=== PATIENT | female | born 1960 | race African-American/Black ===

== ENCOUNTER 2018-02-12 15:00 | Observation (INO) | payer OTHER, SELFPAY ==
[2018-02-12] VITALS (11 sets, daily range): BP systolic 125–153; BP diastolic 70–85; PULSE 74–91; RESP 14–16; TEMP 36.6; O2SAT 98–100; BMI 36.6; BMI 36.7; BMI 34.4
--- NOTE | 2018-02-12 15:17 | CT_ITS ---
STUDY: CT BRAIN WITHOUT CONTRAST REASON FOR EXAM: Female, 57 years old. Weakness. Numbness to the right arm and face RADIATION DOSAGE (If Supplied By Facility): CTDIvol = ( 44.99 ) mGy, DLP = ( 745.49 ) mGycm TECHNIQUE: Transaxial CT imaging of the brain was performed without administration of intravenous contrast material. Individualized dose optimization techniques were used for this CT. COMPARISON: None. FINDINGS: Normal soft tissue structures. Normal calvarium. Normal size ventricles and extra-axial spaces for the patient's age. Normal white matter tracts of the cerebral hemispheres. Normal basal ganglia and thalami. Normal brainstem. Normal cerebellum. There is no intracranial hemorrhage. There are no findings of an acute ischemic infarction. Normal visualized paranasal sinuses. CT/Brain/Head without Contrast IMPRESSION: Normal unenhanced CT scan of the brain. Electronically Signed: Linus Leone DO at 17:25 EDT Tel , Service support ,
--- NOTE | 2018-02-12 15:17 | EKG12_ITS ---
Test Reason : Blood Pressure : / mmHG Vent. Rate : 082 BPM Atrial Rate : 082 BPM P-R Int : 198 ms QRS Dur : 082 ms QT Int : 398 ms P-R-T Axes : 053 043 032 degrees QTc Int : 464 ms Normal sinus rhythm Normal ECG Confirmed by DENNIS ALVARENGA MD ([id number]), script editor PETER SILVERMAN ([id number]) on 02/17/2018 2:17:28 PM Referred By: Confirmed By:DENNIS ALVARENGA MD
--- NOTE | 2018-02-12 15:21 | ED.DCSUM_ITS ---
- ER Visit Summary Date of Service: 02/12/18 Chief Complaint: Trouble speaking and left facial numbness. History of Present Illness: The patient is a 57 F states approximately 2 hours ago she began having trouble speaking. She states she knew what she wanted to say but could not get the words out. She developed numbness on her left face and arm. She states she dropped something with her left arm as well. Family states she had a left-sided facial droop. She states she felt unsteady but did not fall. Denies headache. Denies vision changes. Denies chest pain or shortness of breath. She states her symptoms are starting to resolve and she now only has left facial numbness. Physical Examination: Vitals are stable. Patient is afebrile. Alert no acute distress. HEENT exam is unremarkable. Neck is supple. Lungs are clear and equal bilaterally. Heart is regular rate and rhythm. Abdomen is soft nontender nondistended. Extremities are unremarkable. Skin is warm and dry. NIH 1 for decreased sensation left face. Remainder of exam is unremarkable. Emergency Department Course and Treatment: EKG is sinus rhythm rate of 82, no acute ischemic changes. CBC, chemistries are unremarkable. Troponin is negative. Chest x-ray shows no acute process. CT head shows no acute process. On repeat evaluation patient's symptoms have resolved. Will discuss with the hospitalist for observation. Disposition: Observation Impression: TIA This note was generated with [employer] dictation software. It may contain incorrect words, spelling, and punctuation that were not noted in review of the chart prior to signing ED Disposition - Plan for ED Patient: Chief Complaint: Confusion Referrals: Roberto Alford MD [Primary Care Provider] -
--- NOTE | 2018-02-12 15:30 | RAD_ITS ---
STUDY: X-RAY CHEST REASON FOR EXAM: Female, 57 years old. Confusion, numbness and tingling TECHNIQUE: Single AP portable view of the chest. COMPARISON: None. FINDINGS: The lungs are clear and expanded. There is no demonstrated pleural abnormality. Normal size heart. Normal mediastinum and kamla. Normal visualized pulmonary arteries. Normal visualized aortic arch and descending thoracic aorta. Normal visualized thoracic spine. Normal visualized ribs, clavicles, and shoulders. There is no demonstrated abnormality of the visualized soft tissue structures of the upper abdomen. RAD/Chest 1 View IMPRESSION: Normal x-ray examination of the chest. Electronically Signed: Linus Leone DO at 16:13 EDT Tel , Service support ,
[2018-02-12 15:43] LABS: Absolute Lymphocyte Count 3.91 X10^3/ul (0.83-4.51); Absolute Neutrophil Count 5.1 X10^3/uL (2.0-7.7); Basophil# 0.04 X10^3/uL; Basophil% 0.4 % (0-1); Eosinophil# 0.14 X10^3/uL; Eosinophils% 1.4 % (0-5); Hematocrit 38.2 % (37-47); Lymphocyte # 3.91 X10^3/ul (4.0); Lymphocyte % 40.1 % (19-41); Mean Corp Hgb Conc 31.4 g/gl (32-36); Mean Corpuscular Hgb 26.7 pg (27.0-32.0); Mean Corpuscular Volume 84.9 fL (81-99); Mean Platelet Vol. 10.1 fl (6.2-12.0); Monocyte# 0.55 X10^3/uL; Monocyte% 5.6 % (0-10); Neutrophil # 5.08 X10^3/uL (2.7-7.7); Neutrophil % 52.3 % (47-70); Platelet Count 282 K/mm3 (150-450); RBC Distribution Width CV 15.7 % (11.6-14.6); RBC Distribution Width SD 48.9 fl (35.1-43.9); White Blood Count 9.7 K/mm3 (4.4-11.0)
[2018-02-12 15:45] LABS: POSITIVE COUNT NO; POSITIVE DIFFERENTIAL NO; POSITIVE MORPHOLOGY NO
[2018-02-12 15:59] LABS: Anion Gap 4 (5-15); BUN 16 mg/dL (7-18); BUN/Creat Ratio 20.4 RATIO (10-20); Calcium,Total 8.6 mg/dL (8.5-10.1); Chloride 108 mmol/L (98-107); Creatinine, Serum 0.78 mg/dL (0.55-1.02); EST Glomerular Filtration Rate 81 mL/min (>60); Est Glom Filt Rate - Afr Amer 97 mL/min (>60); Estimated Creatinine Clearance 83.16 ml/min; Glucose 91 mg/dL (74-106); Potassium 3.8 mmol/L (3.5-5.1); Sodium Level 141 mmol/L (136-145)
[2018-02-12 16:29] LABS: Prothrombin Time (Protime)PT. 13.6 SECONDS (11.7-14.9)
[2018-02-12 16:30] LABS: Partial Thromboplast Time 29.2 Seconds (24.1-36.2)
[2018-02-12] MEDS: Aspirin 81 MG TAB.CHEW 324 MG PO (19:28)
[2018-02-12] MEDS: 0.9% Normal Saline 1,000 ML 999 ML IV (19:30)
--- NOTE | 2018-02-12 19:38 | HP.PCM_ITS ---
Problem List (1) Dehydration Status: Acute (2) Obesity Status: Chronic Qualifiers: Obesity classification: adult class 2 (BMI 35 - 39.9) (3) TIA (transient ischemic attack) Status: Acute (4) IBS (irritable bowel syndrome) Status: Chronic Qualifiers: Irritable bowel syndrome type: with constipation Qualified Code(s): K58.1 - Irritable bowel syndrome with constipation History of Present Illness Date of Admission: 02/12/18 Chief Complaint: Numbness and weakness right arm and numbness of left face with slurred speech The patient is a 57 year old F with a past medical history of irritable bowel syndrome on no medications other than Linzess who presented to the emergency room at [facility] on 02/12/2018 complaining of sudden onset of right arm weakness and numbness and left face numbness with slurred speech while at work. The symptoms lasted approximately 1 hour. She denies any right arm numbness or weakness at this time and the left face is no longer numb. Speech is normal. She had a similar episode 3-4 months ago with the same symptoms. She does not take a baby aspirin daily. She denies any history of hypertension, hyperlipidemia or CAD. She has been told in the past that she is borderline diabetic but , she is on no medications. She is a life long non- smoker. Vital signs at presentation to the emergency room were temperature 97.8 , pulse rate 90, blood pressure 146/72, respiratory rate 14 and she was 100% saturated on room air. CT brain was normal. CBC was unremarkable. PT and PTT were within normal limits. Electrolytes were unremarkable. BUN was 16 with a creatinine of 0.78 and the BUN/creatinine ratio of 20.4. 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 Told him was less than 0.02 and the EKG showed normal sinus rhythm with no ectopy and no spacious ST or T-wave changes. She is being admitted to a monitored bed on PCU and the TIA/stroke protocol has been initiated. She was given 324 mg ASA in the ER and will be getting a 1 Lit bolus of NS in preparation for CTA of the head and the neck. Past Medical History Past Medical History (Chronic Problems): Chronic Problems Obesity (Chronic) IBS (irritable bowel syndrome) (Chronic) Allergies latex Allergy (Verified 05/02/14 22:55) Hives Home Medications: Ambulatory Orders Medication Instructions Recorded NK [NK] 02/12/18 Surgical History: hysterectomy - for DUB...she still has ovaries, - - minor surgery on her foot Psychiatric History: No pertinent psych hx H[employer] History: - - DUB...S/P hyster Lives: Spouse/ Significant Other Smoking Status: Never smoker Tobacco Use: Non-smoker Alcohol: None Drugs: None - *Family History Maternal History Items: Diabetes, - - her mother is alive at 80 YOA and has DM and had a stroke Paternal History Items: Diabetes, Heart Disease, - - Father is alive at 85 years of age and has diabetes and congestive heart failure Sibling History Items: - - She has 10 siblings. One sister of breast cancer and one sister has hypertension. Review of Systems Constitutional: Denies: Chills, Fever, Weight Change Eyes: Denies: Blurred vision, Redness HEENT: Denies: Head Aches, Sinus Congestion, Sinus Drainage Cardiovascular: Reports: Edema - when she stands all day at work. Denies: Chest Pain, Heaviness, Light Headedness, Palpitations Respiratory: Denies: Cough, Shortness of breath at rest, Sputum production Gastrointestinal: Denies: Abdominal Pain, Nausea, Vomiting Genitourinary: Denies: Dysuria Gynecological: Reports: - - she is overdue for her yearly MMG and was reminded that she is at increased risk for breast CA she has a first degree relative who had breast CA. Denies: Breast symptoms, Vaginal discharge Musculoskeletal: Denies: Joint Pain, Joint Tenderness Skin: Denies: Jaundice, Rash, Wounds Neurological: Reports: Slurred speech, Focal weakness, Numbness. Denies: Balance problems, Confusion, Tremor, Seizures Psychiatric: Denies: Anxiety, Depression, Homicidal Ideations, Suicidal Ideations Endocrine: Denies: Change in Body Habitus Hematologic/ Lymphatic: Denies: Hx of blood clot VTE Information - Inpt Only VTE Present on Admission: No VTE Mechan Device Prophylaxis: None VTE Pharm Prophylaxis ordered?: No Reason prophylaxis not ordered:: Treatment Not Indicated - short admission expected Patient Problems: Active and Suspected Problems Dehydration (Acute) TIA (transient ischemic attack) (Acute) - Physical Exam General: Alert, Oriented x3, Cooperative, No apparent distress, Well developed, Well nourished HEENT: Atraumatic, PERRLA, EOMI, Normocephalic Oral: No Gingival or Mucosal Lesions/ Ulcerations, Dry Mucosa Neck: Supple, No JVD, Negative Carotid Bruits, Negative Hepatojugular Reflux, No Nodes, Trachea Midline Lungs: Clear to auscultation, Normal air movement, No rhonchi, No wheeze, No rales Cardiovascular: Regular rate, Regular Rhythm, Normal S1, Normal S2, No murmurs, No rub noted, No Gallop Abdomen: Bowel Sounds Present, Soft, Non Tender, Non-Distended, Obese Extremities: No clubbing, No cyanosis, No edema, No Calf Tenderness, Peripheral Pulses Normal Skin: No rashes, No breakdown Musculoskeletal: No Muscle Wasting Neurological: Cranial nerves II-XII grossly intact, Neuro grossly intact, - - R hand dominant Psych/Mental Status: Normal Affect, Appropriate Vital Signs Temp Pulse Resp BP Pulse Ox 97.8 F 75 14 131/70 H 99 02/12/18 15:04 02/12/18 19:12 02/12/18 19:12 02/12/18 19:12 02/12/18 19:12 Oxygen Delivery Method Room Air Weight: 248 lb 3.848 oz Body Mass Index (BMI) 36.6 Laboratory Tests Past 24 Hrs 02/12/18 02/12/18 02/12/18 15:15 15:15 15:15 WBC 9.7 RBC 4.50 Hgb 12.0 Hct 38.2 MCV 84.9 MCH 26.7 L MCHC 31.4 L RDW 15.7 H RDW Differential 48.9 H Plt Count 282 MPV 10.1 Immature Gran % (Auto) 0.200 Neut % (Auto) 52.3 Lymph % (Auto) 40.1 Fillmore % (Auto) 5.6 Eos % (Auto) 1.4 Baso % (Auto) 0.4 Absolute Neuts (auto) 5.1 Absolute Lymphs (auto) 3.91 Total Counted Not Reportable PT Cancelled INR Cancelled APTT Cancelled Sodium 141 Potassium 3.8 Chloride 108 H Carbon Dioxide 29.0 Anion Gap 4 L BUN 16 Creatinine 0.78 Estim Creat Clear Calc 83.16 Est GFR (MDRD) Af Amer 97 Est GFR (MDRD) Non-Af 81 BUN/Creatinine Ratio 20.4 H Glucose 91 Calcium 8.6 Troponin I < 0.02 02/12/18 16:00 WBC RBC Hgb Hct MCV MCH MCHC RDW RDW Differential Plt Count MPV Immature Gran % (Auto) Neut % (Auto) Lymph % (Auto) Fill[place] % (Auto) Eos % (Auto) Baso % (Auto) Absolute Neuts (auto) Absolute Lymphs (auto) Total Counted PT 13.6 INR 1.0 APTT 29.2 Sodium Potassium Chloride Carbon Dioxide Anion Gap BUN Creatinine Estim Creat Clear Calc Est GFR (MDRD) Af Amer Est GFR (MDRD) Non-Af BUN/Creatinine Ratio Glucose Calcium Troponin I Assessment/Plan Active and Suspected Problems Dehydration (Acute) TIA (transient ischemic attack) (Acute) Impressions 1. TIA 2. IBS - on Linzess 3. obesity 4. glucose intolerance - not on meds 5. FH of breast CA in her sister Admitted to PCU to a monitored bed Bolus with 1 lit NS and get a CTA of the head and neck 0.45% NS at 75 after the bolus Continue ASA 81 mg daily ECHO Lipid panel in the AM Check a HGBA1C Recheck BMP in the AM No DVT prophylaxis needed...she is ambulatory and short admission is expected
--- NOTE | 2018-02-12 20:12 | ECHOD_ITS ---
Reason For Study: TIA/CVA Procedure This was a 2D Doppler, Color Flow transthoracic echocardiogram. The exam was of adequate technical quality. Exam performed portable in patient room. Left Ventricle Normal LV size. Apical false tendon noted. Left ventricular systolic function is normal. The estimated ejection fraction is 60 %. No evidence for diastolic dysfunction. No regional wall motion abnormalities noted. Right Ventricle Normal RV size. Normal systolic function. Atria Normal left atrium. Normal right atrium. No doppler evidence for ASD. Bubble contrast study negative for right to left interatrial shunt. Mitral Valve There is no mitral annular calcification. Normal mitral valve. Trivial mitral valve insufficiency. Tricuspid Valve Normal tricuspid valve. Trivial tricuspid valve insufficiency. Right ventricular systolic pressure estimated to be 20 mmHg. Aortic Valve Trisinus/trileaflet aortic valve. Normal aortic valve. Pulmonic Valve The pulmonic valve is not well visualized. Trivial pulmonic valve insufficiency. Great Vessels Normal sized aortic root. Pericardium/Pleural No pericardial effusion. Medication Performed a rapid injection of agitated mix of 9 cc saline and 1cc air to assess for atrial septal defect. MMode/2D Measurements & Calculations LVIDd: 3.5 cm IVSd: 1.3 cm Ao root diam: 3.4 cm LVIDs: 2.2 cm LVPWd: 1.2 cm LA dimension: 3.7 cm RVDd: 3.5 cm FS: 38.2 % LAV(MOD-bp): 60.2 ml EDV(MOD-sp4): 94.9 ml EDV(MOD-sp2): 99.3 ml LAV(MOD-bp) Indexed: 27.1 ml/m2 ESV(MOD-sp4): 32.2 ml EF(MOD-sp2): 56.5 % LAV(MOD-sp2): 56.6 ml EF(MOD-sp4): 66.1 % LAV(MOD-sp4): 52.4 ml SV(MOD-sp4): 62.7 ml SV(MOD-sp2): 56.1 ml LA A4 area: 16.9 cm2 RA A4 area: 11.5 cm2 Doppler Measurements & Calculations MV E max melissa: 73.8 cm/sec Ao V2 max: 100.4 cm/sec LV V1 max: 90.5 cm/sec MV A max melissa: 84.1 cm/sec Ao max P.0 mmHg LV V1 max P.3 mmHg MV E/A: 0.88 PA V2 max: 87.4 cm/sec TR max melissa: 206.6 cm/sec TR max P.1 mmHg Interpretation Summary Left ventricular systolic function is normal. The estimated ejection fraction is 60 %. Apical false tendon noted. Trivial mitral valve insufficiency. Trivial tricuspid valve insufficiency. Trivial pulmonic valve insufficiency. Right ventricular systolic pressure estimated to be 20 mmHg. No evidence for diastolic dysfunction. Ordering Physician: Zahida Sam Referring Physician: Suman Alford M.D. Performed By: Meenu Negron RDCS
--- NOTE | 2018-02-12 20:12 | CT_ITS ---
STUDY: CTA OF THE BRAIN REASON FOR EXAM: Female, 57 years old. TIA/stroke with right arm numbness and weakness. RADIATION DOSAGE (If Supplied By Facility): CTDIvol = ( 18.71 ) mGy, DLP = ( 786.98 ) mGycm TECHNIQUE: CT angiography was performed with a multi-detector CT scanner. Data acquisition was obtained from the skull base through the vertex following intravenous administration of approximately 100 ml of IV contrast. MIP images were reconstructed from the axial data set. Post-processing of the angiographic images was performed, with multiplanar reformation and 3D reconstruction. Individualized dose optimization techniques were used for this CT. COMPARISON: None. FINDINGS: Normal bilateral petrous carotid arteries. Normal right cavernous carotid artery with a normal supraclinoid bifurcation. Normal left cavernous carotid artery with a normal supraclinoid bifurcation. Normal right A1 segments of the anterior cerebral artery. Normal left A1 segments of the anterior cerebral artery. Normal intact anterior communicating artery (ACOM). Normal bilateral A2 segments of the anterior cerebral arteries. Normal right M1 and M2 segments of the middle cerebral arteries, with a normal M1 bifurcation. Normal left M1 and M2 segments of the middle cerebral arteries, with a normal M1 bifurcation. Normal right posterior communicating artery (PCOM). Normal left posterior communicating artery (PCOM). Normal bilateral vertebral arteries. Normal basilar artery with a normal basilar bifurcation. The visualized bilateral superior cerebellar (SCA) arteries are normal. Normal bilateral P1, P2 and visualized P3 segments of the posterior cerebral arteries. There is no demonstrated aneurysm of the [place] of [place]. There is no demonstrated abnormality of the visualized brain. CT/CTA Head W/WO Contrast IMPRESSION: 1. No evidence of significant steno-occlusive disease or aneurysm. Electronically Signed: Gary Baker DO at 21:34 EDT , Service support ,
--- NOTE | 2018-02-12 20:12 | CT_ITS ---
STUDY: CTA NECK WITH CONTRAST REASON FOR EXAM: Female, 57 years old. TIA, stroke with right arm numbness and weakness. RADIATION DOSAGE (If Supplied By Facility): CTDIvol = ( 18.71 ) mGy, DLP = ( 786.98 ) mGycm TECHNIQUE: CT angiography with multi-detector data acquisition was performed from the aortic arch to the skull base following intravenous administration of 100ML ml of Isovue 370 contrast. MIP images were reconstructed from the axial data set. Post-processing of the angiographic images was performed, with multiplanar reformation and 3D reconstruction. Individualized dose optimization techniques were used for this CT. COMPARISON: None. FINDINGS: AORTIC ARCH: Normal visualized aortic arch. Normal origins of the brachiocephalic, left common carotid, and left subclavian arteries. RIGHT CAROTID ARTERIES: Normal right common carotid artery (CCA). Normal right common carotid bulb. Normal origin of the right internal carotid (ICA) artery without a hemodynamically significant stenosis. Normal visualized cervical portion of the right internal carotid artery. Normal origin of the right external carotid artery (ECA). LEFT CAROTID ARTERIES: Normal left common carotid artery (CCA). Normal left common carotid bulb. Normal origin of the left internal carotid (ICA) artery without a hemodynamically significant stenosis. Normal visualized cervical portion of the left internal carotid artery. Normal origin of the left external carotid artery (ECA). VERTEBRAL ARTERIES: Normal bilateral vertebral arteries. CT/CTA Neck W/WO Contrast IMPRESSION: No evidence of significant steno-occlusive disease or aneurysm. Electronically Signed: Gary Baker DO at 21:35 EDT , Service support ,
[2018-02-12 21:02] LABS: Hemoglobin A1c 6.1 % (4.2-6.3)
[2018-02-12 21:10] LABS: AST(SGOT) 14 U/L (15-37); Alanine Aminotransfer ALT/SGPT 14 U/L (13-56); Albumin, Serum 3.4 g/dL (3.2-5.0); Alkaline Phosphatase 130 U/L (45-117); Bilirubin, Direct 0.08 mg/dL (0.00-0.30); Globulin 4.1 g/dL (2.2-4.2); Magnesium 2.3 mg/dL (1.6-2.6); Phosphorus 2.9 mg/dL (2.5-4.9); Protein, Total 7.5 g/dL (6.4-8.2); Thyroid Stim Hormone (TSH) 1.06 uIU/mL (0.358-3.74)
[2018-02-12] MEDS: 0.45% Normal Saline 1,000 ML 100 ML IV (21:12)
[2018-02-13] VITALS (11 sets, daily range): BP systolic 121–153; BP diastolic 61–81; PULSE 64–89; RESP 16–18; TEMP 36.4–36.8; O2SAT 98–100; BMI 34.4
[2018-02-13 00:34] LABS: Magnesium 2.3 mg/dL (1.6-2.6); Thyroid Stim Hormone (TSH) 1.08 uIU/mL (0.358-3.74)
[2018-02-13] MEDS: 0.45% Normal Saline 1,000 ML 100 ML IV (05:18)
[2018-02-13] MEDS: Enoxaparin 40 MG/0.4 ML Syringe SC (05:18)
[2018-02-13 05:48] LABS: Cholesterol 195 mg/dL (200); High Density Lipoprotein 46 mg/dL; Triglycerides 75 mg/dL; Very Low Density Lipoprotein 15 mg/dL (5-40)
--- NOTE | 2018-02-13 05:55 | MRI_ITS ---
STUDY: MRI BRAIN WITHOUT CONTRAST REASON FOR EXAM: Female, 57 years old. Episode of facial/lip numbness, bilat arm numbness. Symptoms resolved now. TECHNIQUE: Standardized multiplanar fat and water weighted pulse sequences were obtained. COMPARISON: CT February 12, 2018 FINDINGS: There is a single punctate focus of hyperintensity on the DWI sequence in the left parietal lobe which could represent an acute lacunar infarct. Normal size of the ventricles and extra-axial spaces for the patient's age. Normal white matter tracts of the supratentorial brain. Normal bilateral basal ganglia. Normal thalami. There is no extra-axial fluid accumulation. Normal flow voids within the major intracranial circulation suggesting patency by spin echo criteria. Normal sella turcica, pituitary gland, infundibular stalk, optic chiasm and hypothalamus. Normal tectal plate and pineal gland. Normal midbrain, davion and medulla. Normal cerebellum. Normal basal cisterns. Normal bilateral temporal bones. Normal bilateral internal auditory canals. No demonstrated orbital abnormality, within the constraints of a routine brain study. Normal visualized paranasal sinuses. Normal calvarium and skull base. Normal visualized soft tissue structures. Normal visualized upper cervical spine. MRI/Brain without Contrast IMPRESSION: There could be an acute lacunar infarct of the left parietal lobe. Electronically Signed: Elizabeth Elaine MD at 13:06 EDT , Service support ,
[2018-02-13] MEDS: Aspirin 81 MG TAB.CHEW PO (08:27)
--- NOTE | 2018-02-13 16:04 | DCINST_ITS ---
- Discharge Diagnoses Current Active Problems: Current Active and Chronic Problems Dehydration (Acute) Obesity (Chronic) TIA (transient ischemic attack) (Acute) IBS (irritable bowel syndrome) (Chronic) You will use the following diet at home:: Other - low carb, low fat Your food should be the consistency of: Regular Your liquids should be the consistency of: Regular/Thin Call your doctor if you observe: Fever of 101 or Higher, Shortness of breath, Dizziness, Fainting spells, Swelling in the ankles, Chest pain, - - unilateral numbness or weakness, slurred speech, sudden loss of vision, sudden loss of hearing Instructions: Controlling Your Cholesterol, Tips for Using Less Salt, Symptoms of Stroke, What Is Ischemic Stroke?, Cholesterol Medications, Low-Fat Cooking Tips Additional Instructions: The scans on the blood vessels in the head and the neck show no significant narrowing of the arteries. The MRI of the brain showed a very small stroke in the left brain. Fortunately you have no lasting effects from the stroke and it was tiny. We did a test called a HGBA1C. This is a test for diabetes. Your HGBA1C is consistent with prediabetes, also known as Glucose intolerance. Since you have a family history this means you have an increased risk of developing diabetes. What you can do to prevent this is cut down on Carbohydrate intake. Exercise for 30 minutes a day....walking is great. AND lose some weight......this is the hardest part. The occupational health physiotherapist's at the hospital run a program called [employer]......they can help you with meal planning and weight loss....you will just need a referral from your PCP. Weight watcher's is also an excellent way to leqarn to eat healthy and lose weight. With Type 2 diabetes the better you control your weight the less likely you will progress to diabetes and require medication. The cholesterol is too high. The bad cholesterol, or LDL, is 134. We like to see this < 70 in someone who has a stroke.....to prevent future strokes. I am starting you on a medication called Atorvastatin which will help to lower you LDL. You will need to have the lipids and a liver panel rechecked in 6 weeks. If you can just chnage your lifestyle a little and eat healthier and exercise some I think your will be fine......make yourself a PRIORITY. The neurologist would like to see you in the office in 2-4 weeks Pending Tests on Discharge: none Allergies/Adverse Reactions: Allergies latex Allergy (Verified 03/04/14 22:55) Hives Medications to take at Discharge Aspirin [Aspirin, Baby] 81 mg PO DAILY@0800 tab.chew 02/13/18 Atorvastatin Calcium 40 mg PO QHS #30 tab 02/13/18 The following prescriptions were given: Atorvastatin Calcium 40 mg PO QHS #30 tab Primary Care Physician: Roberto Alford MD [Primary Care Provider] - Please follow up with your Primary Care Physician in: 7-10 days Please Follow Up With: Isauro Segundo MD When: 2-4 weeks Proposed Discharge Date: 02/13/18
--- NOTE | 2018-02-13 16:06 | PCM.DC.SUM ---
Discharge Date and Diagnosis - Problem List Patient Problems: Active and Suspected Problems Lacunar infarct, acute (Acute) Dehydration (Acute) Date of Admission: 02/12/18 Date of Discharge: 02/13/18 - Primary Discharge Diagnosis Active and Suspected Problems Left parietal Lacunar infarct, acute (Acute) Dehydration (Acute) - Secondary Discharge Diagnosis Chronic Problems Glucose intolerance (Chronic) HGBA1C is 6.1% Dyslipidemia (Chronic) LDL is 134 Obesity (Chronic) IBS (irritable bowel syndrome) (Chronic) Hospital Course and Treatment Imaging Results: Clinical Impression(s) from Imaging Studies Brain CT 02/12/18 15:17 IMPRESSION: Normal unenhanced CT scan of the brain. Electronically Signed: Linus Leone DO at 17:25 EDT Tel , Service support , Chest X-Ray 02/12/18 15:30 IMPRESSION: Normal x-ray examination of the chest. Electronically Signed: Linus Leone DO at 16:13 EDT Tel , Service support , Head CTA 02/12/18 20:12 IMPRESSION: 1. No evidence of significant steno-occlusive disease or aneurysm. Electronically Signed: Gary Baker DO at 21:34 EDT , Service support , Neck CTA 02/12/18 20:12 IMPRESSION: No evidence of significant steno-occlusive disease or aneurysm. Electronically Signed: Gary Baker DO at 21:35 EDT , Service support , Brain MRI 02/13/18 05:55 IMPRESSION: There could be an acute lacunar infarct of the left parietal lobe. Electronically Signed: Elizabeth Elaine MD at 13:06 EDT cf, Service support , none Operations: None Procedures: 2-D Echocardiogram Summary of Care Provided: The patient is a 57 year old F with a past medical history of irritable bowel syndrome on no medications other than Linzess who presented to the emergency room at [facility] on 02/12/2018 complaining of sudden onset of right arm weakness and numbness and the left face numbness with slurred speech while at work. The symptoms lasted approximately 1 hour. She denied any right arm numbness or weakness at the time of my exam and her speech was normal. She had a similar episode 3-4 months ago with the same symptoms. She was not taking a baby aspirin daily. She denied any history of hypertension, hyperlipidemia or CAD. She has been told in the past that she is borderline diabetic but , she is on no medications. There is a FH of DM in both her parents. She is a life long non-smoker. Vital signs at presentation to the emergency room were temperature 97.8, pulse rate 90, blood pressure 146/72, respiratory rate 14 and she was 100% saturated on room air. CT brain was normal. CBC was unremarkable. PT and PTT were within normal limits. Electrolytes were unremarkable. BUN was 16 with a creatinine of 0.78 and the BUN/creatinine ratio of 20.4. 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 Troponin was less than 0.02 and the EKG showed normal sinus rhythm with no ectopy and no suspicious ST or T-wave changes. CTA of the head and the neck showed no significant steno-occlusive disease. She was admitted to a monitored bed on PCU and echocardiogram was ordered. She was given 324 mg of aspirin to chew in the emergency room and was continued on 81 mg of aspirin daily. MRI of the brain on 02/13 showed a possible punctate acute lacunar infarct of the parietal lobe. ECHO did not show a PFO and the ejection fraction was 60% with no significant valvular heart disease. There was no diastolic dysfunction in the right ventricular systolic pressure was estimated to be 20. Telemetry showed NSR with no AF or other significant ectopy. Lipid panel showed a total cholesterol of 195 with an LDL of 134 and an HDL of 46. Triglycerides were 75. TSH was within normal limits. Hemoglobin A1c was 6.1% consistent with glucose intolerance/prediabetes. She was seen by PT/OT and ST and had no deficits. She was discharged home on 02/13 with a RX for Atorvastatin 40 mg Q HS and instructions to take 81 mg of ASA daily. She was instructed to lose some weight and decrease the carbohydrates in her diet. 30 minutes of aerobic exercise was recommended daily. She will follow up with Dr. Alford in 7-[address] Segundo in 2-4 weeks. She should have a lipid panel, liver profile and a CPK in 6 - 8 weeks. This note was generated with [employer] dictation software. It may contain incorrect words, spelling, and punctuation that were not noted in checking the note before signing. Call your doctor if you observe: Fever of 101 or Higher, Shortness of breath, Dizziness, Fainting spells, Swelling in the ankles, Chest pain, - - unilateral numbness or weakness, slurred speech, sudden loss of vision, sudden loss of hearing Home Medications: Medications to take at Discharge Aspirin [Aspirin, Baby] 81 mg PO DAILY@0800 tab.chew 02/13/18 Atorvastatin Calcium 40 mg PO QHS #30 tab 02/13/18 Following Prescrptions Were Given to Patient: Atorvastatin Calcium 40 mg PO QHS #30 tab Primary Care Physician: Roberto Alford MD [Primary Care Provider] - Please follow up with your Primary Care Physician in: 7-10 days Please Follow Up With: Isauro Segundo MD When: 2-4 weeks Patient Instructions: Cholesterol Medications, Controlling Your Cholesterol, Tips for Using Less Salt, Low-Fat Cooking Tips, Symptoms of Stroke, What Is Ischemic Stroke? Disposition: Home Minutes spent on discharge:: 30 Patient Condition:: Good Medical Necessity - Tobacco Use Smoking Status: Never smoker Tobacco Use: Non-smoker Meaningful Use Info Meaningful Use Diagnoses (Choose all that apply): Ischemic CVA - CVA Therapy Assessed for PT,OT and/or ST?: Yes - Ischemic Stroke Antithrombotic order at d/c?: Yes Dx of Atrial fib/flutter?: No Anticoagulant at discharge?: No Reason anticoagulant not ordered: Treatment not Indicated Statins at discharge?: Yes Primary Dx Acute Ischemic CVA?: Yes IV tPA ordered during stay?: No Reason IV t-PA not ordered: Treatment not Indicated Code Visit OBSV E&M: 67562 Observation care discharge
--- NOTE | 2018-02-13 16:27 | DS.PCM_ITS ---
Discharge Date and Diagnosis - Problem List Patient Problems: Active and Suspected Problems Lacunar infarct, acute (Acute) Dehydration (Acute) Date of Admission: 02/12/18 Date of Discharge: 02/13/18 - Primary Discharge Diagnosis Active and Suspected Problems Left parietal Lacunar infarct, acute (Acute) Dehydration (Acute) - Secondary Discharge Diagnosis Chronic Problems Glucose intolerance (Chronic) HGBA1C is 6.1% Dyslipidemia (Chronic) LDL is 134 Obesity (Chronic) IBS (irritable bowel syndrome) (Chronic) Hospital Course and Treatment Imaging Results: Clinical Impression(s) from Imaging Studies Brain CT 02/12/18 15:17 IMPRESSION: Normal unenhanced CT scan of the brain. Electronically Signed: Linus Leone DO at 17:25 EDT Tel , Service support , Chest X-Ray 02/12/18 15:30 IMPRESSION: Normal x-ray examination of the chest. Electronically Signed: Linus Leone DO at 16:13 EDT Tel , Service support , Head CTA 02/12/18 20:12 IMPRESSION: 1. No evidence of significant steno-occlusive disease or aneurysm. Electronically Signed: Gary Baker DO at 21:34 EDT , Service support , Neck CTA 02/12/18 20:12 IMPRESSION: No evidence of significant steno-occlusive disease or aneurysm. Electronically Signed: Gary Baker DO at 21:35 EDT , Service support , Brain MRI 02/13/18 05:55 IMPRESSION: There could be an acute lacunar infarct of the left parietal lobe. Electronically Signed: Elizabeth Elaine MD at 13:06 EDT cf, Service support , none Operations: None Procedures: 2-D Echocardiogram Summary of Care Provided: The patient is a 57 year old F with a past medical history of irritable bowel syndrome on no medications other than Linzess who presented to the emergency room at [facility] on 02/12/2018 complaining of sudden onset of right arm weakness and numbness and the left face numbness with slurred speech while at work. The symptoms lasted approximately 1 hour. She denied any right arm numbness or weakness at the time of my exam and her speech was normal. She had a similar episode 3-4 months ago with the same symptoms. She was not taking a baby aspirin daily. She denied any history of hypertension, hyperlipidemia or CAD. She has been told in the past that she is borderline diabetic but , she is on no medications. There is a FH of DM in both her parents. She is a life long non-smoker. Vital signs at presentation to the emergency room were temperature 97.8, pulse rate 90, blood pressure 146/72, respiratory rate 14 and she was 100% saturated on room air. CT brain was normal. CBC was unremarkable. PT and PTT were within normal limits. Electrolytes were unremarkable. BUN was 16 with a creatinine of 0.78 and the BUN/creatinine ratio of 20.4. 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 Troponin was less than 0.02 and the EKG showed normal sinus rhythm with no ectopy and no suspicious ST or T-wave changes. CTA of the head and the neck showed no significant steno-occlusive disease. She was admitted to a monitored bed on PCU and echocardiogram was ordered. She was given 324 mg of aspirin to chew in the emergency room and was continued on 81 mg of aspirin daily. MRI of the brain on 02/13 showed a possible punctate acute lacunar infarct of the parietal lobe. ECHO did not show a PFO and the ejection fraction was 60 % with no significant valvular heart disease. There was no diastolic dysfunction in the right ventricular systolic pressure was estimated to be 20. Telemetry showed NSR with no AF or other significant ectopy. Lipid panel showed a total cholesterol of 195 with an LDL of 134 and an HDL of 46. Triglycerides were 75. TSH was within normal limits. Hemoglobin A1c was 6.1% consistent with glucose intolerance/prediabetes. She was seen by PT/OT and ST and had no deficits. She was discharged home on 02/13 with a RX for Atorvastatin 40 mg Q HS and instructions to take 81 mg of ASA daily. She was instructed to lose some weight and decrease the carbohydrates in her diet. 30 minutes of aerobic exercise was recommended daily. She will follow up with Dr. Alford in 7-[address] Segundo in 2-4 weeks. She should have a lipid panel, liver profile and a CPK in 6 - 8 weeks. This note was generated with [employer] dictation software. It may contain incorrect words, spelling, and punctuation that were not noted in checking the note before signing. Call your doctor if you observe: Fever of 101 or Higher, Shortness of breath, Dizziness, Fainting spells, Swelling in the ankles, Chest pain, - - unilateral numbness or weakness, slurred speech, sudden loss of vision, sudden loss of hearing Home Medications: Medications to take at Discharge Aspirin [Aspirin, Baby] 81 mg PO DAILY@0800 tab.chew 02/13/18 Atorvastatin Calcium 40 mg PO QHS #30 tab 02/13/18 Following Prescrptions Were Given to Patient: Atorvastatin Calcium 40 mg PO QHS #30 tab Primary Care Physician: Roberto Alford MD [Primary Care Provider] - Please follow up with your Primary Care Physician in: 7-10 days Please Follow Up With: Isauro Segundo MD When: 2-4 weeks Patient Instructions: Cholesterol Medications, Controlling Your Cholesterol, Tips for Using Less Salt, Low-Fat Cooking Tips, Symptoms of Stroke, What Is Ischemic Stroke? Disposition: Home Minutes spent on discharge:: 30 Patient Condition:: Good Medical Necessity - Tobacco Use Smoking Status: Never smoker Tobacco Use: Non-smoker Meaningful Use Info Meaningful Use Diagnoses (Choose all that apply): Ischemic CVA - CVA Therapy Assessed for PT,OT and/or ST?: Yes - Ischemic Stroke Antithrombotic order at d/c?: Yes Dx of Atrial fib/flutter?: No Anticoagulant at discharge?: No Reason anticoagulant not ordered: Treatment not Indicated Statins at discharge?: Yes Primary Dx Acute Ischemic CVA?: Yes IV tPA ordered during stay?: No Reason IV t-PA not ordered: Treatment not Indicated Code Visit OBSV E&M: 42256 Observation care discharge
== END 2018-02-13 17:55 | disposition home or self-care (01) ==
LOC: ED 16:16 → PCU 19:42
PROVIDERS: Family Medicine; Admitting Provider Internal Medicine; Emergency Provider Emergency Medicine; Family Provider Family Medicine; PCP Family Medicine; Visit Provider Internal Medicine
DX: I63.9 Cerebral infarction, unspecified (principal); E86.0 Dehydration; E74.39 Other disorders of intestinal carbohydrate absorption; E78.5 Hyperlipidemia, unspecified; K58.9 Irritable bowel syndrome, unspecified; E66.9 Obesity, unspecified; Z68.34 Body mass index [BMI] 34.0-34.9, adult; Z71.3 Dietary counseling and surveillance; R20.0 Anesthesia of skin; K58.1 Irritable bowel syndrome with constipation; R47.81 Slurred speech
CPT/HCPCS: 36415; 70450; 70496; 70498; 70551; 71045; 80048; 80061; 80076; 83036; 83735; 84100; 84443; 84484; 85025; 85610; 85730; 92523; 93005; 93306; 96360; 96361; 96372; 99218; 99285; Q9967; A4216; G0378

== ENCOUNTER 2020-04-15 21:06 | Emergency (ER) | payer OTHER, SELFPAY ==
[2020-04-15 21:07] VITALS: BP 154/76; PULSE 88; RESP 20; TEMP 35.9; O2SAT 97; BMI 35.9
--- NOTE | 2020-04-15 21:45 | RAD_ITS ---
STUDY: X-RAY - RIGHT SHOULDER REASON FOR EXAM: Female, 59 years old. Right shoulder pain. TECHNIQUE: 3 view(s) of the shoulder. COMPARISON: None. FINDINGS: No visible fracture. No osseous destruction. Alignment anatomic. Mild degenerative changes. Soft tissues unremarkable. RAD/Shoulder min 2 Views IMPRESSION: No acute osseous abnormality. Electronically Signed: Elan Warner, at 23:13 EDT Tel , Service support ,
--- NOTE | 2020-04-15 21:45 | EKG12_ITS ---
Test Reason : SHOULDR PAIN Blood Pressure : / mmHG Vent. Rate : 081 BPM Atrial Rate : 081 BPM P-R Int : 188 ms QRS Dur : 082 ms QT Int : 402 ms P-R-T Axes : 073 052 044 degrees QTc Int : 466 ms Normal sinus rhythm Normal ECG Confirmed by AALIYAH TRINH, OLIVIA ([id number]), news copy editor DIONNE MANZANARES ([id number]) on 04/19/2020 1:06:55 PM Referred By: TRUONG Confirmed By:OLIVIA FISCHER MD
--- NOTE | 2020-04-15 21:47 | ED.VISSUMM ---
- ER Visit Summary Date of Service: 04/15/20 Chief Complaint: Right shoulder and arm pain History of Present Illness: The patient is a 59 F who presents with right shoulder and arm pain that began today after work. 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 Patient states her pain is aching and burning. Patient states her pain is worse with movement. Patient admits to some numbness and tingling down her right arm. Patient denies any trauma or injury. Patient does admit to some pain in her right upper chest. Patient also admits to pain in her right lower cervical paraspinal area and trapezius area. Physical Examination: Vital signs are stable. Patient is afebrile. Patient is in no acute distress. Musculoskeletal exam reveals tenderness and spasm of the right cervical paraspinal muscles. There is tenderness and spasm of the right trapezius muscle and scapular muscles. There is no bony crepitance or step-off. Range of motion of the right shoulder and right elbow are limited secondary to pain. Strength is 5/5 bilaterally in the upper extremities. Sensation was intact to light touch in the radial, median, and ulnar areas. Radial pulses are equal bilaterally. Heart was regular rate and rhythm. Lungs are clear and equal bilaterally. Abdomen is soft and nontender. Test Results: EKG showed normal sinus rhythm with a rate of 81. There are no acute ST or T wave changes. This was unchanged compared to previous EKG dated 10/29/2012. Portable chest x-ray was obtained. There is no acute cardiopulmonary process. X-rays of the right shoulder were obtained. There is no acute fracture or dislocation. There are some mild degenerative changes. These were interpreted by the radiologist and reviewed by myself. CBC, comprehensive metabolic profile, troponin were obtained were all within normal limits. Emergency Department Course and Treatment: Patient was given injection of Toradol here. Patient was feeling better on reevaluation. Patient was given a prescription for Naprosyn. Patient was instructed to ice and elevate the right shoulder. Patient was instructed to follow-up with her primary care physician in 5 to 7 days. Patient understood and was agreeable with the plan. All questions were answered. Disposition: Discharge home Impression: Right shoulder pain This note was generated with [employer] dictation software. It may contain incorrect words, spelling, and punctuation that were not noted in review of the chart prior to signing ED Disposition - Plan for ED Patient: Disposition: Home or Assisted Living Diagnosis: Muscle strain of right shoulder region Instructions: ED Shoulder Sprain Prescriptions: Naproxen [Naprosyn] 500 mg PO BID PRN #20 tab Prescription Printed Referrals: Roberto Alford MD [Primary Care Provider] - 5-7 Days
[2020-04-15] MEDS: Ketorolac 30 MG/ML Syringe IV (22:01)
--- NOTE | 2020-04-15 22:05 | RAD_ITS ---
STUDY: X-RAY CHEST REASON FOR EXAM: Female, 59 years old. rt shoulder pain TECHNIQUE: Single AP portable view of the chest. COMPARISON: February 12, 2018 FINDINGS: The lungs are clear and expanded. There is no demonstrated pleural abnormality. Normal size heart. Stable mediastinal and osseous structures. No visualized acute fracture or aggressive osseous lesion. RAD/Chest 1 View (Portable) IMPRESSION: No acute process Electronically Signed: Bong Lynch MD at 22:52 EDT , Service support ,
[2020-04-15 22:13] LABS: Absolute Neutrophil Count 6.4 X10^3/uL (2.0-7.7); Basophil# 0.05 X10^3/uL; Basophil% 0.4 % (0-1); Eosinophil# 0.16 X10^3/uL; Eosinophils% 1.4 % (0-5); Hematocrit 38.6 % (37-47); Lymphocyte % 35.9 % (19-41); Mean Corp Hgb Conc 31.1 g/dL (32-36); Mean Corpuscular Volume 86.7 fL (81-99); Mean Platelet Vol. 10.3 fl (6.2-12.0); Monocyte# 0.83 X10^3/uL; Monocyte% 7.1 % (0-10); NRBC Flagged by Analyzer 0 % (0-5); Neutrophil # 6.42 X10^3/uL (2.7-7.7); Neutrophil % 54.9 % (47-70); Platelet Count 281 K/mm3 (150-450); RBC Distribution Width CV 15.9 % (11.6-14.6); RBC Distribution Width SD 50.3 fl (35.1-43.9); Red Blood Count 4.45 M/mm3 (4.2-5.4); White Blood Count 11.7 K/mm3 (4.4-11.0)
[2020-04-15 22:31] LABS: ALB/GLOB Ratio 0.8 RATIO (0.9-2.4); AST(SGOT) 13 U/L (15-37); Alanine Aminotransfer ALT/SGPT 17 U/L (13-56); Albumin, Serum 3.5 g/dL (3.2-5.0); Alkaline Phosphatase 140 U/L (45-117); Anion Gap 5 (5-15); BUN 16 mg/dL (7-18); BUN/Creat Ratio 19.8 RATIO (10-20); Calcium,Total 8.9 mg/dL (8.5-10.1); Chloride 109 mmol/L (98-107); Creatinine, Serum 0.81 mg/dL (0.55-1.02); EST Glomerular Filtration Rate 77 mL/min (>60); Est Glom Filt Rate - Afr Amer 93 mL/min (>60); Estimated Creatinine Clearance 78.15 ml/min; Globulin 4.3 g/dL (2.2-4.2); Glucose 108 mg/dL (74-106); Protein, Total 7.8 g/dL (6.4-8.2); Sodium Level 144 mmol/L (136-145)
[2020-04-15 23:41] VITALS: BP 111/74; PULSE 74; RESP 18; O2SAT 98
== END 2020-04-15 23:48 | disposition home or self-care (01) ==
PROVIDERS: Emergency Provider Emergency Medicine; PCP Family Medicine
DX: S46.911A Strain of unspecified muscle, fascia and tendon at shoulder and upper arm level, right arm, initial encounter (principal); X58.XXXA Exposure to other specified factors, initial encounter; Y93.9 Activity, unspecified; Y92.9 Unspecified place or not applicable
CPT/HCPCS: 71045; 73030; 80053; 84484; 85025; 93005; 96374; 99284; A4216

== ENCOUNTER 2021-10-30 06:30 | Emergency (ER) | payer OTHER, SELFPAY ==
[2021-10-30 06:33] VITALS: BP 162/77; PULSE 86; RESP 21; TEMP 36.6; O2SAT 99; BMI 34.2
--- NOTE | 2021-10-30 06:48 | RAD_ITS ---
EXAM: XR CHEST, 1 VIEW : 1960 CLINICAL INDICATION: chest pain TECHNIQUE: Frontal view of the chest. This report was created using [employer] report generation technology. COMPARISON: 04/15/20 FINDINGS: LUNGS AND PLEURAL SPACES: Unremarkable. No consolidation or edema. No pneumothorax. No effusion. HEART: Unremarkable. Cardiac silhouette not enlarged. MEDIASTINUM: Central airways and mediastinal contour are unremarkable. BONES/JOINTS: Degenerative changes of the spine. SOFT TISSUES: Unremarkable. RAD/Chest 1 View (Portable) IMPRESSION: No acute findings in the chest. at 0713 Reported and signed by: Shivam Allan MD Electronically Signed: Shivam Allan MD at 7:12 EST Tel , Service support ,
--- NOTE | 2021-10-30 06:48 | EKG12_ITS ---
Test Reason : CP Blood Pressure : / mmHG Vent. Rate : 086 BPM Atrial Rate : 086 BPM P-R Int : 186 ms QRS Dur : 080 ms QT Int : 364 ms P-R-T Axes : 055 018 023 degrees QTc Int : 435 ms Normal sinus rhythm Normal ECG Confirmed by DENNIS ALVARENGA MD ([id number]), video editor PATO LANG ([id number]) on 11/01/2021 9:28:46 AM Referred By: AR Confirmed By:DENNIS ALVARENGA MD
[2021-10-30 06:54] LABS: Absolute Lymphocyte Count 4.65 X10^3/uL (0.83-4.51); Absolute Neutrophil Count 7.8 X10^3/uL (2.0-7.7); Basophil# 0.08 X10^3/uL; Basophil% 0.6 % (0-1); Eosinophil# 0.14 X10^3/uL; Hematocrit 40.2 % (37-47); Hemoglobin 12.6 g/dL (12.0-15.0); Lymphocyte # 4.65 X10^3/ul (0.83-4.51); Lymphocyte % 34.4 % (19-41); Mean Corp Hgb Conc 31.3 g/dL (32-36); Mean Corpuscular Hgb 26.1 pg (27.0-32.0); Mean Corpuscular Volume 83.4 fL (81-99); Mean Platelet Vol. 10.2 fl (6.2-12.0); Monocyte# 0.84 X10^3/uL; Monocyte% 6.2 % (0-10); NRBC Flagged by Analyzer 0 % (0-5); Neutrophil # 7.76 X10^3/uL (2.7-7.7); Neutrophil % 57.4 % (47-70); Platelet Count 293 K/mm3 (150-450); RBC Distribution Width CV 15.8 % (11.6-14.6); Red Blood Count 4.82 M/mm3 (4.2-5.4); White Blood Count 13.5 K/mm3 (4.4-11.0)
--- NOTE | 2021-10-30 07:07 | EX.ED.DYSGE1 ---
HPI History of Present Illness Chief Complaint: Chest Pain Informant: patient Narrative Narrative: 60-year-old female presenting to the emergency department with upper back pain. Patient states her pain began on Friday and has been constant since. She states it is worse with movement and what makes it better is just to not move. She notes its upper thoracic and between her shoulder blades on the right side and moves towards the right arm. She notes intermittent sharp pains just to the left of her manubrium. She notes a sensation of shortness of breath. She notes a intermittent cough. No fevers or rhinorrhea. No DVT PE risk factors. She denies any leg symptoms. No nausea vomiting. PFSH PFS Medical History (Updated 10/30/21 @ 09:[address] Osman Das DO) Dyslipidemia Hypertension TIA (transient ischemic attack) Home Medications aspirin 81 mg PO DAILY@0800 tab.chew 02/13/18 [Rx Last Taken Unknown] amlodipine 5 mg PO DAILY 10/30/21 [History Last Taken Unknown] atorvastatin 40 mg PO DAILY 10/30/21 [History Last Taken Unknown] cyclobenzaprine 10 mg PO TID PRN #15 tablet 10/30/21 [Rx Last Taken Unknown] ketorolac 10 mg PO Q8H PRN 5 Days #15 tab 10/30/21 [Rx Last Taken Unknown] Allergy/AdvReac Type Severity Reaction Status Date / Time latex Allergy Hives Verified 10/30/21 06:31 Surgical History no surgical history Social History (Updated 10/30/21 @ 07:[address] Osman Das DO) Smoking Status: Never smoker substance use type: does not use ROS ROS ED Constitutional Constitutional ED: Denies chills, fever(s) or weight loss Eyes Eyes: Denies change in vision or diplopia ENT ENT ED: Denies ear pain, rhinorrhea or sore throat Cardiovascular Cardiovascular: Reports chest pain; Denies orthopnea, palpitations or racing heartbeat Respiratory/Chest Respiratory/Chest: Reports cough and dyspnea; Denies orthopnea Gastrointestinal Gastrointestinal: Denies abdominal pain, diarrhea, nausea or vomiting Genitourinary Genitourinary ED: Denies dysuria, hematuria or urinary frequency Musculoskeletal Musculoskeletal: Reports back pain; Denies arthralgias or myalgias Integumentary Denies abscess or rash Neurologic Neurologic: Denies headache(s) or weakness Psychiatric Psychiatric: Denies anxiety, depression, suicidal ideation or suicidal thoughts Endocrine Endocrinology: Denies polydipsia, polyphagia or polyuria Allergic/Immunologic Allergic/Immunologic ED: Denies mouth swelling, tongue swelling or urticaria EXAM Physical Exam Const Vital Signs: 10/30/21 06:33 10/30/21 06:36 10/30/21 07:02 Temperature 97.8 F Temperature Source Oral Pulse Rate 86 Respiratory Rate 21 H Respiratory Effort Normal Respiratory Pattern Normal Blood Pressure 162/77 H Blood Pressure Mean 105 Pulse Ox 99 Oxygen Delivery Method Room Air Room Air Positive well nourished and well developed General Appearance ED: well developed HEENT Reports normocephalic, head/scalp atraumatic, TM's clear and moist mucous membranes Negative for trauma Tympanic Membrane ED: Yes TM's clear Eyes PERRL and EOMs intact bilaterally Neck no lymphadenopathy, supple and no JVD Resp normal respiratory effort and clear to auscultation bilaterally Cardio regular rate, regular rhythm and no murmurs GI normal to inspection, nondistended, normoactive bowel sounds and non-tender Palpation: soft Back/Spine no CVA tenderness and normal ROM Back/Spine Narrative: Tender to palpation of the upper thoracic paraspinal musculature Extremity normal to inspection General Extremety ED: Negative for edema General Extremity: Negative for edema Neuro oriented x3 and CN's II-XII intact bilaterally Sensorium / Orientation: alert Motor Exam: strength 5/5 throughout Psych mental status grossly normal Mood & Affect: Negative for depressed or tearful Skin no rashes or lesions noted and no wounds MDM MDM MDM Narrative Medical decision making narrative: My interpretation of the chest x-ray is no acute process. White count nonspecifically elevated at 13.5. Troponin at 6. D-dimer is elevated 0.54. CTA of the chest demonstrates no pulmonary embolism or obvious dissection. This point I feel that this is most likely muscular. I will write for some muscle relaxants anti-inflammatories and have her follow-up if not improving return if worsening or concerns Lab Data Attestation: I reviewed the patient's lab results. Labs: Laboratory Results - last 24 hr 10/30/21 10/30/21 10/30/21 06:40 06:44 06:44 WBC 13.5 H RBC 4.82 Hgb 12.6 Hct 40.2 MCV 83.4 MCH 26.1 L MCHC 31.3 L RDW Std Deviation 48.0 H RDW Coeff of Rajani 15.8 H Plt Count 293 MPV 10.2 Immature Gran % (Auto) 0.400 Neut % (Auto) 57.4 Lymph % (Auto) 34.4 Williamson % (Auto) 6.2 Eos % (Auto) 1.0 Baso % (Auto) 0.6 Absolute Neuts (auto) 7.8 H Absolute Lymphs (auto) 4.65 H Nucleated RBC % 0 D-Dimer Quant (PE/DVT) 0.54 H* Sodium 141 Potassium 3.4 L Chloride 108 H Carbon Dioxide 27.0 Anion Gap 6 BUN 13 Creatinine 0.64 Estim Creat Clear Calc 104.48 Est GFR (MDRD) Af Amer 121 Est GFR (MDRD) Non-Af 100 BUN/Creatinine Ratio 20.2 H Glucose 118 H Calcium 8.8 Troponin I High Sens 6 Radiography Diagnostic Testing: Clinical Impression(s) from Imaging Studies Chest X-Ray 10/30/21 06:48 IMPRESSION: No acute findings in the chest. at 0713 Reported and signed by: Shivam Allan MD Electronically Signed: Shivam Allan MD at 7:12 EST Tel , Service support , Chest CTA 10/30/21 07:45 IMPRESSION: Normal CTA chest examination, without a demonstrated pulmonary embolism or arterial dissection. Electronically Signed: Mina Dickerson MD at 8:50 EST Tel , Service support , EKG Initial EKG: Attestation: I personally reviewed and interpreted this EKG as follows: Comments: Normal sinus rhythm with a ventricular rate of 86 bpm. Discharge Plan Triage Chief Complaint: Chest Pain ED Provider: Osman Das Dx/Rx/DC Orders Clinical Impression: Somatic dysfunction of thoracic region, Chest pain Instructions: ED Back Spasm, No Trauma Prescriptions: New cyclobenzaprine [cyclobenzaprine] 10 MG tablet 10 mg PO TID PRN (Reason: Muscle Spasm) Qty: 15 RF: 0 ketorolac 10 mg tablet 10 mg PO Q8H PRN (Reason: pain) 5 Days Qty: 15 RF: 0 No Action aspirin 81 MG tablet,chewable 81 mg PO DAILY@0800 RF: 0 atorvastatin 40 mg tablet 40 mg PO DAILY RF: 0 amlodipine 5 mg tablet 5 mg PO DAILY RF: 0 Primary Care Provider: Kay Pires Referrals: Kay Pires MD [Primary Care Provider] - 1 Week if not improving Disposition Disposition: Home, Self Care
[2021-10-30 07:15] LABS: Anion Gap 6 (5-15); BUN 13 mg/dL (7-18); BUN/Creat Ratio 20.2 RATIO (10-20); Calcium,Total 8.8 mg/dL (8.5-10.1); Chloride 108 mmol/L (98-107); Creatinine, Serum 0.64 mg/dL (0.55-1.02); EST Glomerular Filtration Rate 100 mL/min (>60); Est Glom Filt Rate - Afr Amer 121 mL/min (>60); Estimated Creatinine Clearance 104.48 ml/min; Glucose 118 mg/dL (74-106); Potassium 3.4 mmol/L (3.5-5.1); Sodium Level 141 mmol/L (136-145); Troponin-I HS 6 pg/mL (3.0-54.0)
[2021-10-30 07:43] LABS: D-Dimer Quantitative (DVT/PE) 0.54 FEU/ug/m (0.27-0.49)
--- NOTE | 2021-10-30 07:45 | CT_ITS ---
STUDY: CTA CHEST REASON FOR EXAM: Female, 60 years old. pulmonary embolism elevated d dimer RADIATION DOSAGE (If Supplied By Facility): CTDIvol = ( 16.75 ) mGy, DLP = ( 465.30 ) mGycm TECHNIQUE: The examination was performed with the intravenous administration of IV 100mL Isovue-370. Post-processing of the angiographic images was performed, with multiplanar reformation and 3D reconstruction. Individualized dose optimization techniques were used for this CT. COMPARISON: Chest x-ray earlier today FINDINGS: Normal enhancement of the main pulmonary artery and right and left pulmonary arteries. Normal enhancement of the bilateral peripheral pulmonary arteries. There is no demonstrated pulmonary embolism. Normal thoracic aorta and visualized great vessels. There is no demonstrated aortic dissection. Normal heart and pericardium. Normal mediastinum. Normal hilar regions. Normal visualized trachea and bronchi. The lungs are well expanded. Normal pulmonary parenchyma. Normal pleura. Normal chest wall structures. Normal osseous structures. Normal visualized upper abdomen. CT/CTA Chest W/WO Contrast IMPRESSION: Normal CTA chest examination, without a demonstrated pulmonary embolism or arterial dissection. Electronically Signed: Mina Dickerson MD at 8:50 EST Tel , Service support ,
[2021-10-30] MEDS: Ketorolac 30 MG/ML Syringe IV (09:36)
== END 2021-10-30 10:24 | disposition home or self-care (01) ==
PROVIDERS: Emergency Provider Emergency Medicine; PCP Internal Medicine
DX: M99.02 Segmental and somatic dysfunction of thoracic region (principal); R07.9 Chest pain, unspecified; I10 Essential (primary) hypertension; E78.5 Hyperlipidemia, unspecified; Z86.73 Personal history of transient ischemic attack (TIA), and cerebral infarction without residual deficits; Z86.711 Personal history of pulmonary embolism; Z79.82 Long term (current) use of aspirin; Z79.899 Other long term (current) drug therapy
CPT/HCPCS: 71045; 71275; 80048; 84484; 85025; 85379; 93005; 96374; 99284; Q9967; A4216

== ENCOUNTER 2024-06-01 16:30 | Emergency (ER) | payer OTHER, SELFPAY ==
[2024-06-01 16:30] VITALS: BP 131/117; PULSE 87; RESP 16; TEMP 36.3; O2SAT 97; BMI 35.4
--- NOTE | 2024-06-01 17:04 | EDS_ITS ---
HPI History of Present Illness HPI Narrative: Patient presents with right lower leg pain that began today. Patient states it began rather suddenly. Patient states it has been constant all day. Patient is unsure if she twisted her leg today. Patient denies any significant injury or trauma. Patient describes her pain as sharp. Patient states it is worse with ambulation. Patient states it is better with rest. Patient denies any paresthesias or weakness. Patient states she called her primary care physician who told her to come to the emergency department for a possible blood clot. Chief Complaint: Lower Extremity Injury Informant: patient Onset/Context/Timing Onset: Today Context: Sudden Onset Timing: Continuous Quality of Pain: Sharp Location: Right leg Worsened by: Ambulation Relieved by: Rest Associated Symptoms Associated Symptoms: Negative for Parasthesia, Weakness or Loss of Funtion [facility] Medical History (Updated 06/01/24 @ 18:[address] Philipp Lopez DO) Hypercholesterolemia Hypertension TIA (transient ischemic attack) Dyslipidemia Home Medications ?Medication ?Instructions ?Recorded ?Last Taken ?Type aspirin 81 mg chewable tablet 81 mg PO DAILY@0800 02/13/18 Unknown Rx amlodipine 5 mg tablet 5 mg PO DAILY 10/30/21 Unknown History atorvastatin 40 mg tablet 40 mg PO DAILY 10/30/21 Unknown History Allergy/AdvReac Type Severity Reaction Status Date / Time latex Allergy Hives Verified 10/30/21 06:31 Surgical History (Updated 06/01/24 @ 17:[address] Philipp Lopez DO) H/O: hysterectomy Social History Smoking Status: Never smoker substance use type: does not use ROS ROS ED Constitutional Constitutional ED: Denies chills or fever(s) Eyes Eyes: Denies blurry vision or change in vision ENT ENT ED: Denies rhinorrhea or sore throat Cardiovascular Cardiovascular: Denies chest pain or palpitations Respiratory/Chest Respiratory/Chest: Denies cough or dyspnea Gastrointestinal Gastrointestinal: Denies nausea or vomiting Genitourinary Genitourinary ED: Denies dysuria or hematuria Musculoskeletal Musculoskeletal: Denies back pain or neck pain Integumentary Denies abscess or rash Neurologic Neurologic: Denies headache(s) or weakness Allergic/Immunologic Allergic/Immunologic ED: Denies mouth swelling or urticaria EXAM Physical Exam Const Vital Signs: 06/01/24 16:30 Temperature 97.3 F L Temperature Source Temporal Pulse Rate 87 Respiratory Rate 16 Blood Pressure 131/117 H Blood Pressure Mean 121 Pulse Ox 97 Oxygen Delivery Method Room Air Positive well nourished and well developed General Appearance ED: well developed and NAD HEENT Reports moist mucous membranes Neck full ROM and supple Extremity Extremity Narrative: There is mild tenderness and edema over the right lower leg. There is some pain in the knee itself. There is no effusion. There is no deformity noted. Range of motion was limited in all motions of the right knee secondary to pain. There is some mild pain with dorsiflexion of the ankle. Pedal pulses are equal bilaterally. Sensation was intact to light touch in all digits. Capillary refill was less than 2 seconds in all digits. Strength is 5/5 bilaterally in the lower extremities. Neuro oriented x3, CN's II-XII intact bilaterally, moves all extremities and no sensory deficits noted Sensorium / Orientation: alert Motor Exam: strength 5/5 throughout Psych mental status grossly normal MDM MDM MDM Narrative Medical decision making narrative: Differential diagnosis includes DVT and muscle strain. Venous duplex of the right lower extremity will be obtained to assess for DVT. Radiography Diagnostic Testing: Venous duplex of the right lower extremity was obtained. There is no evidence of DVT. There is a Tanner's cyst noted. Treatment and Re-Evaluation Narrative: Patient was advised of her findings. Patient was advised that this is most likely a muscle strain or possible pain from her knee arthritis. Patient was instructed to ice and elevate the right leg. Patient was instructed to follow- up with her primary care physician in 5 to 7 days. Patient was instructed return if worse in any way. Patient understood and was agreeable with the plan. All questions were answered. Discharge Plan Triage Chief Complaint: Lower Extremity Injury ED Provider: Philipp Lopez Dx/Rx/DC Orders Clinical Impression: Strain of right calf muscle, Hypertension Instructions: ED Muscle Strain, Extremity Prescriptions: No Action aspirin 81 MG tablet,chewable 81 mg PO DAILY@0800 0RF atorvastatin 40 mg tablet 40 mg PO DAILY Patient Comments: Take 1 tablet by mouth daily at bedtime. For cholesterol. amlodipine 5 mg tablet 5 mg PO DAILY Patient Comments: Take 1 tablet by mouth once daily. Primary Care Provider: Kay Pires Referrals: Kay Pires MD [Primary Care Provider] - 5-7 Days Print Language: Andorran Disposition Disposition: Home, Self Care
--- NOTE | 2024-06-01 17:10 | US_ITS ---
EXAM: US DUPLEX RIGHT LOWER EXTREMITY VEINS CLINICAL INDICATION: RT LEG PAIN TECHNIQUE: Real-time duplex ultrasound scan of the right lower extremity veins integrating B-mode two-dimensional vascular structure, Doppler spectral analysis, color flow Doppler imaging and compression. COMPARISON: No relevant prior studies available. FINDINGS: DEEP VEINS: Unremarkable. No DVT in the visualized common femoral, femoral, proximal deep femoral or popliteal veins. The veins demonstrate normal color flow, are normally compressible, with normal phasic flow and/or augmentation response. SUPERFICIAL VEINS: Unremarkable. No thrombus in the visualized great saphenous vein. SOFT TISSUES: There is an anechoic structure in the posterior fossa that measures 4.5 x 0.5 x 1.9 cm compatible with popliteal fossa cyst. US/Venous Duplex Imag/Limited/Uni IMPRESSION: No sonographic evidence of deep venous thrombosis. There is a popliteal fossa cyst present. Electronically Signed: Kane Camacho MD at 18:11 EDT ,
== END 2024-06-01 18:17 | disposition home or self-care (01) ==
PROVIDERS: Emergency Provider Emergency Medicine; PCP Internal Medicine; Visit Provider Emergency Medicine
DX: S86.111A Strain of other muscle(s) and tendon(s) of posterior muscle group at lower leg level, right leg, initial encounter (principal); E78.00 Pure hypercholesterolemia, unspecified; I10 Essential (primary) hypertension; Z86.73 Personal history of transient ischemic attack (TIA), and cerebral infarction without residual deficits; X58.XXXA Exposure to other specified factors, initial encounter; M79.661 Pain in right lower leg
CPT/HCPCS: 93971; 99282

== ENCOUNTER → 2024-07-14 | Outpatient (CLI) | payer OTHER, SELFPAY ==
--- NOTE | 2024-07-14 07:44 | CT_ITS ---
PROCEDURE: CT RIGHT KNEE WITHOUT CONTRAST REASON FOR EXAM: Female, 63 years old. Preoperative planning for the MakoPlasty Robotic knee surgery. Knee pain. TECHNIQUE: Transaxial CT of the hip, knee and ankle were obtained. Coronal and sagittal reconstruction images of the knee were provided. Individualized dose optimization techniques were used for this CT. COMPARISON: None. FINDINGS: Standard protocol for the preoperative planning for the MakoPlasty robotic knee surgery was performed. Osteopenia with mild arthrosis of the right hip, moderate to marked tricompartmental arthrosis of the right knee and mild arthrosis of the tibiotalar and subtalar joints. CT/Extremity Lower without Contra IMPRESSION: Preoperative MakoPlasty Robotic knee surgical CT evaluation with findings as described above. Electronically Signed: Oral Samano MD at 9:30 EDT ,
== END | disposition home or self-care (01) ==
PROVIDERS: PCP Internal Medicine; Referring Provider Specialist; Visit Provider Specialist
DX: M17.11 Unilateral primary osteoarthritis, right knee (principal); M21.061 Valgus deformity, not elsewhere classified, right knee
CPT/HCPCS: 73700

== ENCOUNTER 2024-08-02 07:05 | Observation (INO) | payer OTHER, SELFPAY ==
--- NOTE | 2024-07-14 07:43 | EKG12_ITS ---
Test Reason : PRE OP Blood Pressure : / mmHG Vent. Rate : 074 BPM Atrial Rate : 074 BPM P-R Int : 164 ms QRS Dur : 080 ms QT Int : 402 ms P-R-T Axes : 058 041 046 degrees QTc Int : 446 ms Sinus rhythm with Premature supraventricular complexes Otherwise normal ECG Confirmed by COLETTE TRINH, DENNIS ([id number]), editor managing director PATO LANG ([id number]) on 07/14/2024 1:27:57 PM Referred By: Malick Harrison Confirmed By:DENNIS ALVARENGA MD
[2024-07-14 08:32] LABS: Absolute Lymphocyte Count 3.33 X10^3/uL (0.83-4.51); Absolute Neutrophil Count 5.2 X10^3/uL (2.0-7.7); Basophil# 0.07 X10^3/uL; Basophil% 0.7 % (0-1); Eosinophil# 0.17 X10^3/uL; Eosinophils% 1.8 % (0-5); Hematocrit 38.4 % (37-47); Hemoglobin 11.9 g/dL (12.0-15.0); Lymphocyte # 3.33 X10^3/ul (0.83-4.51); Lymphocyte % 34.8 % (19-41); Mean Platelet Vol. 10.3 fl (6.2-12.0); Monocyte# 0.74 X10^3/uL; Monocyte% 7.7 % (0-10); NRBC Flagged by Analyzer 0 % (0-5); Neutrophil # 5.21 X10^3/uL (2.7-7.7); Neutrophil % 54.6 % (47-70); Platelet Count 274 K/mm3 (150-450); RBC Distribution Width CV 16.7 % (11.6-14.6); RBC Distribution Width SD 51.3 fl (35.1-43.9); Red Blood Count 4.57 M/mm3 (4.2-5.4); White Blood Count 9.6 K/mm3 (4.4-11.0)
[2024-07-14 09:08] LABS: Magnesium 2.3 mg/dL (1.6-2.6)
[2024-07-14 09:32] LABS: Albumin, Serum 3.4 g/dL (3.2-5.0); Anion Gap 4 (5-15); BUN 18 mg/dL (7-18); BUN/Creat Ratio 29.8 RATIO (10-20); Calcium,Total 9.2 mg/dL (8.5-10.1); Chloride 110 mmol/L (98-107); EST Glomerular Filtration Rate 106 mL/min (>60); Est Glom Filt Rate - Afr Amer 128 mL/min (>60); Glucose 107 mg/dL (74-106); Potassium 3.8 mmol/L (3.5-5.1); Sodium Level 141 mmol/L (136-145)
[2024-08-02] VITALS (13 sets, daily range): BP systolic 115–144; BP diastolic 53–78; PULSE 75–90; RESP 12–16; TEMP 36.1–36.6; O2SAT 98–100; BMI 33.1; BMI 35.3; BMI 35.4
--- NOTE | 2024-08-02 07:06 | RAD_ITS ---
STUDY: X-RAY - RIGHT KNEE REASON FOR EXAM: Female, 63 years old. Post op -- AP and Lateral xray of operative knee in PACU. TECHNIQUE: 2 views of the right knee. COMPARISON: None. FINDINGS: There are new postoperative changes related to right total knee arthroplasty with patellar resurfacing. There is a vertical staple line along the anterior aspect of the knee. There is gas in the patellofemoral joint recess and anterior soft tissues, compatible with recent surgery. The orthopedic hardware components are intact. There is no periprosthetic fracture. Normal proximal tibiofibular articulation. RAD/Knee 1 or 2 Views IMPRESSION: New postoperative changes related to right total knee arthroplasty. Electronically Signed: Varun Elaine MD at 12:03 EDT ,
--- NOTE | 2024-08-02 08:32 | PRE.ANES_ITS ---
ASA Classification* ASA Classification ASA Classification: 2 Assessment & Plan Anesthesia* Anesthesia Assessment Anesthesia Assessment: Discussed sedation and/or anesthesia options, risks, benefits, and alternatives with patient/parents/legal guardian/POA. Questions invited. The patient/parents/legal guardian/POA seems to understand and agrees to proceed with anesthesia plan. Reviewed the physical assessment, medical history, allergy history and patient home medications list prior to surgery/procedure/anesthetic and documented any changes. Performed airway and anesthesia risk assessments. Anesthesia Type Anesthesia Type: Spinal (Block consented) Anesthesia Focused Assessment* Airway Assessment Mouth opens: >3 cm Mallampati Score: II Focused Labs Anesthesia Preop lab: CBC WBC 9.6 K/mm3 (4.4-11.0) 07/14/24 08:06 RBC 4.57 M/mm3 (4.2-5.4) 07/14/24 08:06 Hgb 11.9 g/dL (12.0-15.0) L 07/14/24 08:06 Hct 38.4 % (37-47) 07/14/24 08:06 Plt Count 274 K/mm3 (150-450) 07/14/24 08:06 CHEMISTRY Potassium 3.8 mmol/L (3.5-5.1) 07/14/24 08:06 Sodium 141 mmol/L (136-145) 07/14/24 08:06 Magnesium 2.3 mg/dL (1.6-2.6) 07/14/24 08:06 Phosphorus 2.9 mg/dL (2.5-4.9) 02/12/18 20:25 BUN 18 mg/dL (7-18) 07/14/24 08:06 Creatinine 0.60 mg/dL (0.55-1.02) 07/14/24 08:06 Glucose 107 mg/dL (74-106) H 07/14/24 08:06 TSH 1.08 uIU/mL (0.358-3.74) 02/12/18 20:25 COAG PT 13.6 SECONDS (11.7-14.9) 02/12/18 16:00 Pre-Assessment Diagnosis/Proposed Procedure Planned Operative Procedure(s): (R) ERAS, Total Knee Replacement Robotic Arm Assist Anesthesia History Anesthesia History - endoscopy technician: Anesthesia History - endoscopy technician Hx Hospitalization No 07/12/24 11:43 Any Problems With Anesthesia No 07/12/24 11:43 Cholinesterase deficiency No 07/12/24 11:43 You/Your Family Experience No 07/12/24 11:43 fever (hyperthermia) with Relationship Recent Exposure to Contagious Disease Does patient have nerve No 07/12/24 11:43 stimulator Patient instructed to have device shut off --Does patient have Pacemaker or ICD? When Was Last Pacemaker Check QUESTION #4 FULL TEXT: You/Your Family Experience fever (hyperthermia) with Anesthesia Last Oral Intake Last Oral intake: Last Oral Intake NPO since Meds taken in AM with sips of water? Meds patient instructed to take am of surgery PONV PONV - endoscopy technician: PONV - endoscopy technician Female Yes 07/12/24 11:43 HX of Motion Sickness No 07/12/24 11:43 HX of N/V After Surgery No 07/12/24 11:43 Non-Smoker Yes 07/12/24 11:43 Duration of Surgery greater Yes 07/12/24 11:43 than 60 minutes Number of Risk Factors 3 07/12/24 11:43 PONV Score Moderate Risk 07/12/24 11:43 Height & Weight Height & Weight: Anesthesia: Height & Weight Height 5 ft 8 in 06/01/24 16:30 Respiratory Assessment Respiratory Assessment - endoscopy technician: Respiratory Tract Infection Hx - endoscopy technician Hx Respiratory Tract Infection No 07/12/24 11:43 STOP Sleep Apnea STOP Sleep Apnea - endoscopy technician: STOP Sleep Apnea - endoscopy technician Hx Hypertension Yes: CONTROLLED ON MED 07/12/24 11:43 Hx Sleep Apnea Yes: NON-COMPLIANT 07/12/24 11:43 CPAP No 07/12/24 11:43 BIPAP No 07/12/24 11:43 Do you snore loudly (louder No 07/12/24 11:43 than talking or can be heard Do you often feel tired/ No 07/12/24 11:43 fatigued/ sleepy during daytime? Has anyone observed you stop No 07/12/24 11:43 breathing during sleep? STOP Results Positive 07/12/24 11:43 QUESTION #5 FULL TEXT : Do you snore loudly (louder than talking or can be heard through closed doors)? 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 Specify any problems Hx of Preganancy in last 3 No 07/12/24 11:43 Months Nurse Filling Out Transfusion VCHRISTIN 07/12/24 11:43 & Questions: Date: 07/12/24 07/12/24 11:43 Time: 11:44 07/12/24 11:43 Patient unable to answer at this time (ie. confused, unrespo /Reproduction History /Reproductive History - endoscopy technician: /Reproductive Hx- endoscopy technician Hx Now No 07/12/24 11:43 Gestational Age (in weeks): EDC: Hx Hx Para Hx Section SAB No 07/12/24 11:43 Active Medications Active Medications: Current Medications Generic Name Dose Route Start Last Admin Trade Name Freq PRN Reason Stop Dose Admin Acetaminophen 1,000 mg 08/02/24 10:00 Acetaminophen 500 Mg Tablet PO 08/02/24 10:01 X1 ONE Acetaminophen 1,000 mg 08/02/24 14:00 Acetaminophen 500 Mg Tablet PO Q8 [facility] Amlodipine Besylate 5 mg 08/02/24 10:00 Amlodipine 5 Mg Tablet PO DAILY [facility] Protocol Aspirin 81 mg 08/02/24 10:00 Aspirin 81 Mg Tab.Chew PO BID [facility] Atorvastatin Calcium 40 mg 08/02/24 10:00 Atorvastatin Calcium 40 Mg Tablet PO DAILY [facility] Celecoxib 400 mg 08/02/24 10:00 Celecoxib 200 Mg Capsule PO 08/02/24 10:01 X1 ONE Cholecalciferol 25 mcg 08/02/24 10:00 Cholecalciferol (Vit D3) 25 Mcg Tablet (1,000 Units) PO DAILY [facility] Sodium Chloride 77.4 ml/ 0 ml 08/02/24 10:00 Ropivacaine 200 mg/ OPERA.SITE 08/02/24 10:01 Epinephrine HCl 0.6 mg/ X1 ONE Ketorolac Tromethamine 30 mg/ Morphine Sulfate 5 mg Dexamethasone Sodium Phosphate 10 mg 08/02/24 10:00 Dexamethasone 10 Mg/Ml Vial IV 08/02/24 10:01 X1 ONE Enteral Nutritional Formula 237 ml 08/02/24 08:00 Ensure Surgery 237 Ml Liquid PO TIDCM BETZY Famotidine 20 mg 08/02/24 10:00 Famotidine 20 Mg Tablet PO DAILY [facility] Gabapentin 600 mg 08/02/24 10:00 Gabapentin 600 Mg Tablet PO 08/02/24 10:01 X1 ONE Lactated Ringer's 1,000 mls @ 999 mls/hr 08/02/24 10:00 IV 08/02/24 11:00 .Q1H1M BETZY Cefazolin Sodium 2 gm/ Sodium 110 mls @ 150 mls/hr 08/02/24 10:00 Chloride IV 08/02/24 10:43 PREOP ONE Tranexamic Acid 1,000 mg/ 110 mls @ 660 mls/hr 08/02/24 10:00 Sodium Chloride IV 08/02/24 10:09 X1 ONE Tranexamic Acid 1,000 mg/ 110 mls @ 660 mls/hr 08/02/24 11:00 Sodium Chloride IV 08/02/24 11:09 X1 ONE Lactated Ringer's 1,000 mls @ 999 mls/hr 08/02/24 11:00 IV 08/02/24 12:00 .Q1H1M BETZY Lactated Ringer's 1,000 mls @ 125 mls/hr 08/02/24 12:00 IV 08/02/24 19:59 .Q8H BETZY Magnesium Sulfate 1 gm/ 102 mls @ 408 mls/hr 08/02/24 10:00 Dextrose IV 08/02/24 10:14 X1 ONE Cefazolin Sodium 1 gm in 50 mls @ 150 mls/hr 08/02/24 14:00 IV 08/02/24 22:19 Q8 BETZY Lactated Ringer's 1,000 mls @ 15 mls/hr 08/02/24 08:30 IV .Q48H BETZY Insulin Human Lispro 1 - 6 unit 08/02/24 10:00 Insulin Lispro 100 Unit/Ml Insuln.Pen SC 08/02/24 16:00 Q4H PRN PRN BG>/= 180, SEE PROTOCOL Protocol Ketorolac Tromethamine 15 mg 08/02/24 07:05 Ketorolac 15 Mg/Ml Vial IV 08/04/24 07:06 Q6H PRN PRN Pain Score 1-5 Meloxicam 7.5 mg 08/04/24 10:00 Meloxicam 7.5 Mg Tablet PO BID [facility] Morphine Sulfate 2 - 4 mg 08/02/24 07:05 Morphine 2 Mg/Ml Syringe IV Q2H PRN PRN Pain Score 6-10 Non-Formulary Medication 7.5 mg 08/02/24 07:15 Tirzepatide (Weight Loss) [Zepbound] SC QWEEK [facility] Ondansetron HCl 4 mg 08/02/24 07:05 Ondansetron 4 Mg/2 Ml Vial IV Q8H PRN PRN NAUSEA Oxycodone HCl 5 - 10 mg 08/02/24 07:05 Oxycodone 5 Mg Tablet PO Q4H PRN PRN Pain Score 4-10 Promethazine HCl 12.5 mg 08/02/24 07:05 Promethazine 25 Mg/Ml Syringe IM Q6H PRN PRN NAUSEA/VOMITING Protocol Senna/Docusate Sodium 2 tablet 08/02/24 10:00 Senna/Docusate Sodium 1 Tablet PO BID [facility] PFSH Medical History Post-menopausal Arthritis High cholesterol Migraine headache History of IBS Non-smoker Sleep apnea History of edema Hypercholesterolemia Hypertension TIA (transient ischemic attack) Dyslipidemia Home Medications ?Medication ?Instructions ?Recorded ?Last Taken ?Type aspirin 81 mg chewable tablet 81 mg PO DAILY@0800 02/13/18 Unknown Rx amlodipine 5 mg tablet 5 mg PO DAILY 10/30/21 Unknown History atorvastatin 40 mg tablet 40 mg PO DAILY 10/30/21 Unknown History biotin 10 mg tablet 10 mg PO DAILY 07/12/24 Unknown History cholecalciferol (vitamin D3) 25 25 mcg PO DAILY 07/12/24 Unknown History mcg (1,000 unit) capsule (Vitamin D3) elderberry fruit 350 mg capsule 350 mg PO DAILY 07/12/24 Unknown History meloxicam 7.5 mg tablet 7.5 mg PO DAILY 07/12/24 Unknown History tirzepatide (weight loss) 7.5 7.5 mg subcut QWEEK 07/12/24 06/28/24 History mg/0.5 mL subcutaneous pen injector (Zepbound) Allergy/AdvReac Type Severity Reaction Status Date / Time latex Allergy Hives Verified 07/12/24 11:29 Surgical History History of surgery on lower extremity Hx of foot surgery H/O: hysterectomy Social History Smoking Status: Never smoker substance use type: does not use Review of Systems (Anesthesia) ROS Narrative System reviewed and no additional complaints, except as documented.
[2024-08-02] MEDS: Lactated Ringers 1,000 ML 999 ML IV ×2 (09:06→15:23)
[2024-08-02] MEDS: Magnesium 1 GM over 15 mins IV (09:07)
[2024-08-02] MEDS: Celecoxib 200 MG Capsule 400 MG PO (09:12)
[2024-08-02] MEDS: Gabapentin 600 MG Tablet PO (09:13)
[2024-08-02] MEDS: Acetaminophen 500 MG Tablet 1000 MG PO ×2 (09:13→21:11)
[2024-08-02 09:16] LABS: Bedside Glucose 131 mg/dL (74-106)
[2024-08-02] MEDS: Cefazolin 2 GM in 0.9% Normal Saline (100mL Bag) 100 ML IV (09:51)
[2024-08-02] MEDS: TXA 1000mg in NS100 100ml (IVPB at Incision) 660 MG IV (09:55)
[2024-08-02] MEDS: dexAMETHasone 10 MG/ML Vial IV (10:00)
--- NOTE | 2024-08-02 10:00 | KNEE_PTH ---
PATIENT: FIDEL PARRA LOC: [facility]3 U#:[id number] AGE/SX: 63/F ROOM: [facility] [place] RE08/02/[address]: Dr. Malick Harrison MD : 1960 BED: 1 DIS: 08/03/2024 SPEC #: [id number] RECD: 08/02/24 13:17 STATUS: SEE REQ #: [id number] CHUCK: 08/02/24 10:[address]: Malick Harrison DEPT: SURGICAL PATHOLOGY RECD BY: Lissa Garcia ENTERED: 08/02/24 13:40 SP TYPE: TOTAL KNEE OTHR DR: MD Dr. Lorri Segundo MD Tissues: Knee, NOS Procedures: Decalcification bone/plaque Surgery Specimen Level IV HEADER OPERATION: Total knee replacement robotic arm assist PRE-OP DIAGNOSIS: Severe grade 4 osteoarthritis right knee, osteoporosis TISSUE SUBMITTED: Bone and soft tissue right knee MICROSCOPIC DIAGNOSIS Bone and tissue of right knee, total knee resection: Severe degenerative joint disease. Mild synovial hyperplasia. AM: 08/05/2024 MICROSCOPIC DESCRIPTION Slides are reviewed. GROSS DESCRIPTION Received is one container designated bone and soft tissue right knee. The specimen consists of multiple fragments of romero-yellow bone measuring in aggregate 11.0 x 10.0 x 3.5 cm. Also in the specimen container are multiple fragments of yellow-white soft tissue attached to the piece of bone and also present are separate pieces of soft tissue measuring in aggregate 4.0 x 3.0 x 1.0 cm. A number of bony fragments contain articular surfaces consistent with tibial plateau and femoral condyle and displaying prominent osteophyte formation, eburnation and bone erosion. Emergency Planning And Response Manager sections are submitted in two cassettes as follows: 1 - soft tissue, 2 - bone after decalcification. /[email or web address] 08/02/2024 TC:5 CPT: 59087, 16347
--- NOTE | 2024-08-02 10:46 | OP.PCM_ITS ---
Report of Operation Date of Procedure: 08/02/24 Pre-Operative Diagnosis: Right knee primary osteoarthritis Post-Operative Diagnosis: Right knee primary osteoarthritis Surgery/Procedure Performed:: Right minimally invasive robotic total knee replacement Description of Surgical Findings:: Stable knee with good patella tracking Surgeon: Malick Harrison copy center associate: Suman Catnu Type of Anesthesia: Spinal Anesthesiologist: Slava Figueroa Special Medications: 2 g Ancef, 1 g TXA at incision, 1 g TXA closure, 10 mg Decadron, joint cocktail (5 mg Duramorph, 30 mL of 0.5% Ropivicaine, 1000 units of epinephrine, 30 mg of Toradol) Specimen's removed: Bony cuts Estimated Blood Loss (mL): 75 Fluids Replaced: 1500 ml Crystalloid Description of Procedure: Implants used: 1. Dumont size 3 triathlon cruciate retaining distal femoral press-fit component 2. Dixie size 4 press-fit tritanium tibial baseplate 3. Dixie X3 9 mm CS polyethylene Brief history operative indications: 63-year-old F with history of right knee osteoarthritis with radiographic findings with loss of joint space, osteophyte formation and subchondral sclerosis. Failed conservative measures as mentioned in the H&P. Discussion of total knee arthroplasty as well as risk and benefits were discussed the patient including but not limited to blood loss, DVTs, PEs, neurovascular damage, general risk of anesthesia including loss of life, and stiffness or instability were discussed with patient. Patient demonstrated understanding and was able to sign informed consent. Procedure: On the date of procedure patient's right lower extremity was marked in the preoperative area. The patient was then taken back to the operating room where the patient was placed on the table in the supine position. All bony prominences were identified a well-padded. Anesthesia assumed control of the C-spine and airway and remained controlled throughout the remainder of the procedure. A tourniquet was placed on the right upper thigh and the leg was prepped in a sterile fashion. The surgeon then scrubbed at this time .Upon reentering the room right lower extremity was draped in a standard orthopedic fashion. A timeout was then called and everyone agreed upon the side, the site, the procedure to be performed, patient's identity and antibiotics given. Esmarch bandage was used to exsanguinate the extremity and the tourniquet was placed up to 250 mmHg with the knee in flexion. A midline skin incision was made and sharp dissection was taken down through skin subcutaneous tissue and fat. The standard medial parapatellar incision was made and the patella was subluxed laterally. An Appropriate deep MCL release was done and the fat pad was resected. Our attention was then directed to the patella. The patella was everted and inspected and found to have appropriate cartilage for maintaining. The knee was then flexed up in 2 femoral pins were placed inside the incision and 2 tibial pins were placed outside the incision in the medial tibia bicortically. Once this was completed the 2 checkpoints in the femur and tibia were placed. Knee was then flexed up and the bony landmarks were registered. Once this was completed knee was taken through range of motion and manually stressed allowing us to a plan for an appropriate tibial cut. The robotic arm was brought into the field sterilely and checkpoint and saw were registered. Based on the patient's deformity the tibial cut was made in 2 degrees of varus. At this time the tensioner was then placed in the joint and ligament tension was checked at 90 degrees and full extension. Based on the patient's ligamentous tension appropriate adjustments were made to the operative plan and ligament releases were done. Once we were happy with our operative plan with balanced flexion and extension gaps our attention was directed to the femur. The robot was brought into the field sterilely and registered. Posterior condylar cuts, anterior chamfer cuts and anterior cuts were appropriately made for a size 3 femur. When these were completed the saws were switched out in the distal femoral and posterior chamfer cuts were made. Protecting the soft tissue throughout this time. A size 4 tibial base plate was selected. the knee was flexed to 90 degrees and the soft tissues and posterior osteophytes were removed from the joint. 40 cc of the periarticular injection was injected into the posterior medial corner of the joint. The appropriate trials were then placed on the femur and tibia. A trial polyethylene was trialed to ensure proper balancing and stability of the knee. The appropriate tibial internal rotation was then marked with a bovie. Our attention was then directed to the patella. Patellar tracking was checked and deemed appropriate. Once we were happy lug holes were drilled for the femur and trial components were removed. the tibia was subluxed and pinned into place and the keel was punched and drilled appropriately. Final components were verified and opened, and cement was mixed in a vacuum. [place] Simplex cement was used. The wound was copiously irrigated with normal saline. When the cement was ready the components were impacted into place starting with the tibia, femur. The trial poly component was placed and the knee was placed in full extension. All excess cement was removed in the process. Once the cement had cured the tracking, alignment and balance were verified and a size 9 mm CS polyethylene component was placed. Once the final components were placed a 3-minute dilute Betadine lavage was performed followed by an Irrisept lavage was performed and the wound was copiously irrigated with normal saline solution and the periarticular injection was given. The wound was closed in a layer lopez fashion using #1 vicryl interrupted sutures for the arthrotomy, 2-0 interrupted Vicryl suture for the subcuticular layer and shamar for final skin closure. A sterile compressive dressing was then placed. The patient was then awakened from anesthesia, transferred to the [facility] and transferred to the PACU for recovery. Post op plan DVT ppx: ASA 81mg BID, thigh high compression stockings Follow up: in office in 2 weeks for wound check PT: to start POD #0 at hospital, outpatient PT should be arranged. My physician commercial escrow assistant was a vital part of this case. He was important in appropriate retraction during the case, and protection of soft tissues during bony cuts. His intimate knowledge of the case and my steps aided in safe and expedient completion of the procedure as well as appropriate position of the leg during the case. He was also vital in assisting with closure under my direct supervision. Due to the complexity of this case robotic arm was used to assist in the surgery to improve accuracy and clinical outcomes. Complications No intraoperative complications Admit VTE Documentation VTE Present on Admission: No VTE Mechan Device Prophylaxis: SCD's and Thigh High ZENAIDA Hose VTE Pharm Prophylaxis ordered?: Yes
[2024-08-02] MEDS: TXA 1000mg in NS100 100ml (IVPB at Closure) 660 MG IV (10:48)
[2024-08-02] MEDS: JPS (Morphine 10mg/ml) OPERA.SITE (10:50)
--- NOTE | 2024-08-02 11:33 | PCM.POST.ANE ---
Anesthesia: Postop Eval I Current Vital Signs Temperature: 97.8 F Pulse Rate: 88 Blood Pressure: 115/53 Respiratory Rate: 16 Pulse Ox: 99 Oxygen Delivery Method: Room Air Assessment Airway patent: Yes Spontaneous unlabored respirations: Yes Mental status: Awake and Calm nausea: No Vomiting: No Anesthesia Complication: No Fluid Hydration Crystalloid volume administer (ml): 2,000 Total IV fluid infused: 2,000 Progress Note Anesthesia document: Postop Eval 1 completed: Yes
--- NOTE | 2024-08-02 12:15 | SUR.PHASEI ---
CALLED FOR TRANSPORT [id number]
--- NOTE | 2024-08-02 12:19 | POSTOPAN2_ITS ---
Anesthesia Postop Eval I Sum Postop Eval Completion status Anesthesia document: Postop Eval 1 completed: Yes Anesthesia Postop Eval I Summary Anesthesia Postop Eval I Summary: Anesthesia Postop Eval I: Assessment Summary Airway patent Yes 08/02/24 11:33 [email or web address] Spontaneous unlabored Yes 08/02/24 11:33 [email or web address] respirations Mental status Awake,Calm 08/02/24 11:33 [email or web address] nausea No 08/02/24 11:33 [email or web address] Vomiting No 08/02/24 11:33 [email or web address] Anesthesia Postop Eval I: Fluid Summary Crystalloid volume administer 2,000 08/02/24 11:33 [email or web address] (ml) Colloids volume administered ( ml) Blood Product volume administered (ml) Total IV fluid infused 2,000 08/02/24 11:33 [email or web address] Anesthesia Postop Eval I: Summary Notes Anesthesia Complication No 08/02/24 11:33 COSTUME DRAPEROUMAR Anesthesia Complication Comment: Post-operative progress note Anesthesia: Postop Eval II Evaluation Mental status: Awake Pain Level: 0 nausea: No Vomiting: No
--- NOTE | 2024-08-02 12:19 | PCM.POSTANE2 ---
Anesthesia Postop Eval I Sum Postop Eval Completion status Anesthesia document: Postop Eval 1 completed: Yes Anesthesia Postop Eval I Summary Anesthesia Postop Eval I Summary: Anesthesia Postop Eval I: Assessment Summary Airway patent Yes 08/02/24 11:33 REED [email or web address] Spontaneous unlabored Yes 08/02/24 11:33 [email or web address] [email or web address] respirations Mental status Awake,Calm 08/02/24 11:33 [email or web address] [email or web address] nausea No 08/02/24 11:33 [email or web address] [email or web address] Vomiting No 08/02/24 11:33 [email or web address] [email or web address] Anesthesia Postop Eval I: Fluid Summary Crystalloid volume administer 2,000 08/02/24 11:33 REED [email or web address] (ml) Colloids volume administered ( ml) Blood Product volume administered (ml) Total IV fluid infused 2,000 08/02/24 11:33 [email or web address] [email or web address] Anesthesia Postop Eval I: Summary Notes Anesthesia Complication No 08/02/24 11:33 REED WORKEROUMAR Anesthesia Complication Comment: Post-operative progress note Anesthesia: Postop Eval II Evaluation Mental status: Awake Pain Level: 0 nausea: No Vomiting: No
--- NOTE | 2024-08-02 14:32 | PN_ITS ---
Subjective Subjective Patient is a 63-year-old female with a history of right knee osteoarthritis who was admitted to the service of orthopedic surgery for right total knee arthroplasty. Imaging findings had shown loss of joint space with osteophyte formation and subchondral sclerosis. She failed conservative measures and so was admitted for right knee total arthroplasty. Hospitalist service was consulted for medical management. Patient was seen after surgery.She had no complaints and pain was well controlled. Review of systems was otherwise negative. She was hemodynamically stable. Objective Data Objective Data Vital Signs: Vital Signs Temp Pulse Resp BP Pulse Ox O2 Del Method O2 Flow Rate 97.9 F 75 16 134/66 H 100 Nasal Cannula 5 08/02/24 12:27 08/02/24 12:27 08/02/24 12:27 08/02/24 12:27 08/02/24 12:08/02/24 12:08/02/24 12:27 Oxygen Flow Rate (L/min) 5 Oxygen Delivery Method Nasal Cannula Weight: 239 lb 6.752 oz Body Mass Index (BMI) 35.3 Intake & Output: Intake and Output for Last 24 Hours 07/31/24 08/01/24 08/02/24 23:59 23:59 23:59 Intake Total 1432 / 1432 Balance 1432 / 1432 Lab / Micro Data 07/14/24 08:06 07/14/24 08:06 Labs: Laboratory Results - last 24 hr 08/02/24 08:47: POC Glucose 131 H Micro: Microbiology 07/14/24 08:06 Swab (Method) Nasal Screen MRSA/MSSA - Final Radiography Diagnostic Testing: Radiology Impression Knee X-Ray 08/02/24 07:06 IMPRESSION: New postoperative changes related to right total knee arthroplasty. Electronically Signed: Varun Elaine MD at 12:03 EDT , Physical Exam Const alert, oriented x3, no apparent distress and well nourished General Appearance: cooperative and well developed HEENT normocephalic, head/scalp atraumatic, moist oral mucous membranes and oropharynx normal Eyes PERRL and EOMs intact bilaterally Neck supple and no JVD Lymph Lymphatic: no lymphadenopathy noted and no lymphedema noted Resp normal respiratory effort, normal air movement and clear to auscultation bilaterally Cardio regular rate, regular rhythm, S1 normal heart sound, S2 normal heart sound and no murmurs GI normal to inspection, nondistended, normoactive bowel sounds, soft to palpation, non-tender and non-distended Extremity Extremity Narrative: intact dressing over right knee Skin Skin Narrative: as under extremity Neuro CN's II-XII intact bilaterally and no focal motor deficits Motor Exam: general weakness Psych thought process normal and cooperative Appearance: appropriate Assessment & Plan Assessment/Plan (1) Osteoarthritis of left knee: PLAN: Plan #Right knee osteoarthritis * s/p right knee total arthroplasty. Today is POD 0. * management as per orthopedic surgery * PT/OT On board * incentive spirometry * PO tylenol, PO oxycodone and IV morphine prn for pain * fall precautions * #History of TIA: stable. On aspirin and satin. #Hypertension: on amlodipine 5mg daily. DVT prophylaxis: aspirin 81mg bid. Thank you for the courtesy of the consult. The hospitalist service will continue to follow with you. Charges/Coding Visit Charges Inpatient E&M: 13844 Subs Hosp L2
[2024-08-02] MEDS: Lactated Ringers 1,000 ML 125 ML IV (15:23)
[2024-08-02] MEDS: Lactated Ringers 1,000 ML 15 ML IV (15:24)
[2024-08-02] MEDS: Cefazolin 1 GM/50 ML BAG IV (17:39)
[2024-08-02] MEDS: Aspirin 81 MG TAB.CHEW PO (17:40)
[2024-08-02] MEDS: Ensure Surgery 237 ML LIQUID PO (17:43)
[2024-08-02] MEDS: Atorvastatin Calcium 40 MG Tablet PO (21:11)
[2024-08-02] MEDS: Senna/Docusate Sodium 1 Tablet 2 TABLET PO (21:11)
[2024-08-02] MEDS: oxyCODONE 5 MG Tablet PO (21:13)
[2024-08-03] MEDS: Cefazolin 1 GM/50 ML BAG IV (02:04)
[2024-08-03] MEDS: oxyCODONE 5 MG Tablet PO (05:56)
[2024-08-03] MEDS: Acetaminophen 500 MG Tablet 1000 MG PO (05:56)
[2024-08-03 06:20] VITALS: BP 136/66; PULSE 72; RESP 16; TEMP 36.6; O2SAT 100
[2024-08-03 07:04] LABS: Hematocrit 35.9 % (37-47); Hemoglobin 11.3 g/dL (12.0-15.0); Mean Corp Hgb Conc 31.5 g/dL (32-36); Mean Corpuscular Hgb 26.7 pg (27.0-32.0); Mean Corpuscular Volume 84.9 fL (81-99); Mean Platelet Vol. 10.9 fl (6.2-12.0); Platelet Count 258 K/mm3 (150-450); RBC Distribution Width CV 16.4 % (11.6-14.6); RBC Distribution Width SD 50.4 fl (35.1-43.9); Red Blood Count 4.23 M/mm3 (4.2-5.4); White Blood Count 20.5 K/mm3 (4.4-11.0)
[2024-08-03 07:12] LABS: Anion Gap 5 (5-15); BUN 16 mg/dL (7-18); BUN/Creat Ratio 25.3 RATIO (10-20); Calcium,Total 9.2 mg/dL (8.5-10.1); Chloride 109 mmol/L (98-107); Creatinine, Serum 0.63 mg/dL (0.55-1.02); EST Glomerular Filtration Rate 101 mL/min (>60); Est Glom Filt Rate - Afr Amer 122 mL/min (>60); Estimated Creatinine Clearance 119.99 ml/min; Glucose 119 mg/dL (74-106); Potassium 4.1 mmol/L (3.5-5.1); Sodium Level 140 mmol/L (136-145)
[2024-08-03] MEDS: amLODIPine 5 MG Tablet PO (07:37)
[2024-08-03] MEDS: Aspirin 81 MG TAB.CHEW PO (07:37)
[2024-08-03] MEDS: Famotidine 20 MG Tablet PO (07:37)
[2024-08-03] MEDS: Senna/Docusate Sodium 1 Tablet 2 TABLET PO (07:37)
[2024-08-03] MEDS: Cholecalciferol (VIT D3) 25 MCG TABLET (1,000 UNITS) PO (07:37)
--- NOTE | 2024-08-03 07:41 | PCM.PN.ORT ---
Subjective Subjective The patient was sitting in bed upon examination. Patient denies any chest pain, shortness of breath, dizziness, lightheadedness, nausea or vomiting, or calf pain. Pain is controlled on medications. No adverse overnight events. Patient overall is doing well this morning. She is having some more pain but controlled on medication. Plan is for patient to do outpatient therapy upon discharge. Patient was placed on our anemia protocol preoperatively. Patient also stopped her Zepbound preoperatively. She is asking questions about when to resume this. Objective Data Objective Data Vital Signs: Vital Signs Temp Pulse Resp BP Pulse Ox O2 Del Method O2 Flow Rate 97.9 F 72 16 136/66 H 100 Room Air 5 08/03/24 06:20 08/03/24 06:20 08/03/24 06:20 08/03/24 06:20 08/03/24 06:20 08/03/24 06:20 08/02/24 12:27 Oxygen Flow Rate (L/min) 5 Oxygen Delivery Method Room Air Weight: 108.6 kg Body Mass Index (BMI) 35.3 Intake & Output: Intake and Output for Last 24 Hours 08/01/24 08/02/24 08/03/24 23:59 23:59 23:59 Intake Total 5082 / 5082 650 / 650 Balance 5082 / 5082 650 / 650 Lab / Micro Data 08/03/24 06:22 08/03/24 06:22 Labs: Laboratory Results - last 24 hr 08/02/24 08:47: POC Glucose 131 H 08/03/24 06:22: WBC 20.5 H, RBC 4.23, Hgb 11.3 L, Hct 35.9 L, MCV 84.9, MCH 26.7 L, MCHC 31.5 L, RDW Std Deviation 50.4 H, RDW Coeff of Rajani 16.4 H, Plt Count 258, MPV 10.9, Sodium 140, Potassium 4.1, Chloride 109 H, Carbon Dioxide 26.0, Anion Gap 5, BUN 16, Creatinine 0.63, Estim Creat Clear Calc 119.99, Est GFR (MDRD) Af Amer 122, Est GFR (MDRD) Non-Af 101, BUN/Creatinine Ratio 25.3 H, Glucose 119 H, Calcium 9.2 Micro: Microbiology 07/14/24 08:06 Swab (Method) Nasal Screen MRSA/MSSA - Final Radiography Diagnostic Testing: Radiology Impression Knee X-Ray 08/02/24 07:06 IMPRESSION: New postoperative changes related to right total knee arthroplasty. Electronically Signed: Varun Elaine MD at 12:03 EDT , Physical Exam Narrative Vital signs stable and afebrile. SCDs and ZENAIDA hose are in place bilaterally Patient is able to plantarflex and dorsiflex actively. Sensation is intact to light touch to saphenous, sural, superficial and deep peroneal, and tibial distribution. Dressings are clean dry and intact. Negative Homans bilaterally, negative signs and symptoms of DVT. Const alert, oriented x3 and no apparent distress Assessment & Plan Assessment/Plan (1) Status post total right knee replacement: PLAN: 1. S/P robotic assisted right total knee arthroplasty POD #1 2. Continue Pain Medications: Tylenol, meloxicam, oxycodone. Do not take any other nonsteroidal anti-inflammatories while using meloxicam/Mobic. Patient has meloxicam at home and will resume this upon discharge. 3. DVT Prophylaxis: Take 81 mg aspirin twice daily for 4 weeks postoperatively for DVT prophylaxis. Patient denies past history of DVT or pulmonary embolism. 4. PT/OT: Weightbearing as tolerated with walker 5. H & H: 11.3/35.9, asymptomatic. Patient does have drop in hemoglobin postoperatively most likely secondary to acute blood loss from surgery versus dilutional component. Patient preoperatively had hemoglobin of 11.9 and was started on our anemia protocol. I did recommend patient follow-up with primary care physician in approximately 3-4 weeks to reassess with lab work. I would defer to the primary care physician for continuation of the ferrous sulfate and folic acid based on their recommendations. Patient did voiced understanding. 6. Reactive leukocytosis: 20.5, Afebrile. Patient did receive Decadron intraoperatively. No clinical signs of infection. I will give patient a prescription for outside lab to make sure that her leukocytosis is trending downward. 7. Encouraged Incentive Spirometry 8. Patient is aware of postoperative constipation that can occur from 1-3 days postoperatively. Will continue with senna 2 tablets twice daily until first bowel movement. Patient was advised if not having a bowel movement after day 3 she is to contact orthopedics so appropriate change can be made. Patient voiced understanding. 9. Continue postoperative medical treatment per medicine 10. Disposition: Plan will be for discharge as long as patient remains medically stable, tolerates physical therapy, and pain is adequately controlled. I did discuss case with Dr. Malick Harrison with regards to her Zepbound. She is able to resume this. Patient has outpatient physical therapy established. She will follow-up per postoperative instructions. I will also place outpatient lab work on her chart to assess her reactive leukocytosis. I would recommend she gets this on August 05, 2024. I also recommend that patient contact her primary care physician for follow-up in 3-4 weeks. I will have case management help her schedule this appointment if needed. Upon discharge she will contact our office with any concerns or questions. I have reviewed the [place] Automated Rx Reporting System (OARRS) report for this patient for refill pattern and other prescriber involvement as part of the appropriate surveillance for the provision of acute and chronic controlled medications. The report was requested and reviewed on the date of this entry and was considered in the prescribing process. This dictation was created using voice recognition software. Phonetic and/or grammatical errors may exist.
[2024-08-03] MEDS: Ensure Surgery 237 ML LIQUID PO (07:43)
--- NOTE | 2024-08-03 07:47 | PCM.DC ---
Discharge Instructions Diet Discharge Diet: No restrictions Activity Discharge Activity: May Not Drive (No driving for 6 weeks postoperatively. Must also be off all narcotics and able to walk 100 feet without the use of cane or walker.) May shower in (days): 1 (Please turn dressing away from water. Okay to get wet as long as dressing is intact to skin.) Ice area for (Minutes): 20 (Every 1-2 hours while awake. Please place barrier between the skin and ice pack.) Weight Bearing Status: Weight bearing as tolerated Keep extremity elevated above heart level: Operative Extremity Dressing / Incision Call your doctor if your incision/area has: Continuous Slow Oozing, Sudden Increased Bleeding, Increased Pain/ Swelling, Increased Redness and Foul Smelling Discharge Call your doctor if you observe: Fever of 101 or Higher, Coldness, Increased Pain, Numbness or Tingling, Change in Color, Shortness of breath, Chest pain, Calf discomfort and Uncontrolled pain Remove Dressing in: 4 days (Okay to remove dressing on August 07, 2024) Additional Dressing/Incision Instructions:: Follow [facility] Post-op Instructions. Once postoperative dressing has been removed only use gentle soap and water over the incision. Do not use any ointments, Neosporin, salves, alcohol pads over the incision for 6 weeks postoperatively. Do not submerge underwater for 6 weeks postoperatively. Continue with ZENAIDA hose/elastic stockings for 2 weeks postoperatively. May remove at nighttime but needs to be placed back on the leg during the day. Do NOT use alcohol with narcotic pain medication. Do NOT make important decisions while taking narcotic medication. If you have problems with taking your medication (rash, itching, nausea, etc.) call the office at once. Follow Up Care Test Results: Test results from this visit will be discussed in further detail at your follow-up appointment, if applicable. Discharge Plan Admission Admit Date/Time: 08/02/24 07:05 Attending Provider: Malick Harrison Primary Care Provider: Kay Pires Consulting Providers: Lorri West Discharge Orders/Prescriptions Prescriptions: New famotidine 20 mg Tablet 20 mg PO DAILY 30 Days Qty: 30 0RF aspirin 81 mg Tablet,Chewable 81 mg PO BIDCM 30 Days Qty: 60 0RF Rx Instructions: Take 81 mg aspirin twice daily for 4 weeks postoperatively for DVT prophylaxis. After 4 weeks you can then go back to your normal 81 mg aspirin daily oxycodone 5 mg Tablet 5 - 10 mg PO Q4H PRN PRN (Reason: Pain Score 4-10) 7 Days Qty: 42 0RF sennosides-docusate sodium [Stimulant Laxative Plus] 8.6-50 mg Tablet 2 tab PO BID 3 Days Qty: 12 0RF Rx Instructions: Take until first bowel movement, then as needed Continued atorvastatin 40 mg tablet 40 mg PO DAILY Patient Comments: Take 1 tablet by mouth daily at bedtime. For cholesterol. amlodipine 5 mg tablet 5 mg PO DAILY Patient Comments: Take 1 tablet by mouth once daily. cholecalciferol (vitamin D3) [Vitamin D3] 25 mcg (1,000 unit) capsule 25 mcg PO DAILY elderberry fruit 350 mg capsule 350 mg PO DAILY biotin 10 mg tablet 10 mg PO DAILY meloxicam 7.5 mg tablet 7.5 mg PO DAILY Zepbound 7.5 mg/0.5 mL pen injector 7.5 mg subcut QWEEK Discontinued aspirin 81 MG tablet,chewable 81 mg PO DAILY@0800 0RF Other Ambulatory Orders: CBC-Complete Blood Cnt No Diff (Routine) Timeframe: 2 Days Facility: [facility] - Location: Laboratory Ordered By: Suman PATTERSON Referrals / Follow Up: Physical,Therapy [Other] - 08/05/24 3:30 pm Kay Pires MD [[facility]] - (follow up in 3-4 weeks for pre-operative anemia) Fe Rich PA [Med Staff - Adv Practice Prof] - 08/17/24 9:15 am Disposition Disposition (needs filled in before D/C Order can be placed): Home, Self Care
--- NOTE | 2024-08-03 10:15 | CASEMGMT ---
MISTI FRIAS Assessment: Face to Face with pt for initial transition planning/care coordination assessment. MISTI FRIAS introduced self and role at [facility], pt voices understanding and consents to assessment. Pt is A&O x4 and answers all questions appropriately at this time. Pt sitting up in chair in no distress. Care providers, pharmacy, and demographics verified/updated. Admitting Dx: TKR Strata Score: 1 PCP:Lexis Specialists:tadeo Harrison Preferred Pharmacy: [facility] Retail Insurance: [employer] Prescription Benefit: yes LNOK: Jamal Walker, Living Arrangements: Pt lives with in an apt with 1 step to enter. Pt reports prior to surgery she was I in ADL and IADLs. Pt denies concerns at home. Transportation: Pt drives self and denies concerns with transportation. Pt , family and friends will assist in transportation until pt can drive again. DME:kirstie marroquin, [facility], w/c HHC/SNF: Denies hx of Pt states no concerns with going home at time of dc. Pt has outpt therapy set up at [facility] on . Pt states her sisters from out of state are staying with her for a week to assist. Pt states no further concerns/needs. CM to follow. Advised pt to ask CM if any further question/concerns/needs arise, voices understanding. Pt Goal: Home with outpt therapy set up Plan: Home with outpt therapy set up Gaurav CHAPPELL CM
[2024-08-03 10:58] VITALS: BP 134/64; PULSE 66; RESP 18; TEMP 36.4; O2SAT 100
--- NOTE | 2024-08-03 11:09 | PN_ITS ---
Subjective Subjective Patient seen and examined. She had no active complaints and felt well. Pain was well controlled. Review of systems was otherwise negative. She is on room air and has remained hemodynamically stable. Objective Data Objective Data Vital Signs: Vital Signs Temp Pulse Resp BP Pulse Ox O2 Del Method O2 Flow Rate 97.9 F 72 16 136/66 H 100 Room Air 5 08/03/24 06:20 08/03/24 06:20 08/03/24 06:20 08/03/24 06:20 08/03/24 06:20 08/03/24 07:57 08/02/24 12:27 Oxygen Flow Rate (L/min) 5 Oxygen Delivery Method Room Air Weight: 239 lb 6.752 oz Body Mass Index (BMI) 35.3 Intake & Output: Intake and Output for Last 24 Hours 08/01/24 08/02/24 08/03/24 23:59 23:59 23:59 Intake Total 5082 / 5082 650 / 650 Balance 5082 / 5082 650 / 650 Lab / Micro Data 08/03/24 06:22 08/03/24 06:22 Labs: Laboratory Results - last 24 hr 08/03/24 06:22: WBC 20.5 H, RBC 4.23, Hgb 11.3 L, Hct 35.9 L, MCV 84.9, MCH 26.7 L, MCHC 31.5 L, RDW Std Deviation 50.4 H, RDW Coeff of Rajani 16.4 H, Plt Count 258, MPV 10.9, Sodium 140, Potassium 4.1, Chloride 109 H, Carbon Dioxide 26.0, Anion Gap 5, BUN 16, Creatinine 0.63, Estim Creat Clear Calc 119.99, Est GFR (MDRD) Af Amer 122, Est GFR (MDRD) Non-Af 101, BUN/Creatinine Ratio 25.3 H, G lucose 119 H, Calcium 9.2 Micro: Microbiology 07/14/24 08:06 Swab (Method) Nasal Screen MRSA/MSSA - Final Radiography Diagnostic Testing: Radiology Impression Knee X-Ray 08/02/24 07:06 IMPRESSION: New postoperative changes related to right total knee arthroplasty. Electronically Signed: Varun Elaine MD at 12:03 EDT , Physical Exam Const alert, oriented x3, no apparent distress and well nourished General Appearance: cooperative and well developed HEENT normocephalic, head/scalp atraumatic, moist oral mucous membranes and oropharynx normal Eyes PERRL and EOMs intact bilaterally Neck supple and no JVD Lymph Lymphatic: no lymphadenopathy noted and no lymphedema noted Resp normal respiratory effort, normal air movement and clear to auscultation bilaterally Cardio regular rate, regular rhythm, S1 normal heart sound and S2 normal heart sound GI normal to inspection, nondistended, normoactive bowel sounds, soft to palpation, non-tender and non-distended Extremity Extremity Narrative: intact dressing over right knee Neuro CN's II-XII intact bilaterally and no focal motor deficits Motor Exam: general weakness Psych thought process normal and cooperative Appearance: appropriate Assessment & Plan Assessment/Plan (1) Osteoarthritis of left knee: PLAN: Plan #Right knee osteoarthritis * s/p right knee total arthroplasty. Today is POD 1. * management as per orthopedic surgery * PT/OT On board * incentive spirometry * PO tylenol, PO oxycodone and IV morphine prn for pain * fall precautions * #Leucocytosis * wbc is up to 20.5 today. No clear evidence of infection, as she denies any cough, shortness of breath or any urinary symptoms. * It may likely be reactive, from mehrdad surgery. * Will monitor closely. There were no labs done yesterday, so I am not sure where her true baseline before surgery was. Last labs were on 07/14/2024 and wbc was 9.6 then. * #History of TIA: stable. On aspirin and satin. #Hypertension: on amlodipine 5mg daily. DVT prophylaxis: aspirin 81mg bid. Thank you for the courtesy of the consult. We will continue to follow with you. Charges/Coding Visit Charges Inpatient E&M: 52099 Subs Hosp L2
== END 2024-08-03 11:25 | disposition home or self-care (01) ==
LOC: SDC 14:13 → AC 14:14 → SDC 14:14 → MS3 14:14
PROVIDERS: Anesthesiology; Admitting Provider Specialist; PCP Internal Medicine; Referring Provider Specialist; Visit Provider Specialist
PROC: 0SRC0JZ Replacement of Right Knee Joint with Synthetic Substitute, Open Approach (ICD-10-PCS; CPT 27447; principal; 2024-08-02 09:30)
DX: M17.0 Bilateral primary osteoarthritis of knee (principal); I10 Essential (primary) hypertension; Z79.899 Other long term (current) drug therapy; Z79.82 Long term (current) use of aspirin; E78.00 Pure hypercholesterolemia, unspecified
CPT/HCPCS: 27447; S2900; 01402; 36415; 73560; 80048; 82040; 82962; 83735; 85025; 85027; 87081; 88305; 88311; 93005; 94668; 96365; 96366; 97116; 97162; 97166; 97530; 97535; 99221; 99252; C1713; C1776; J7120; G0378; G0463; J3475